=== PATIENT | female | born 1990 | race African-American/Black ===

== ENCOUNTER 2019-01-24 23:19 | Inpatient (IN) | payer OTHER ==
[~2019-01-24] VITALS: Ht 152.4 cm; Wt 51.5 kg
[~2019-01-24 23:19] MED LIST: NEXIUM40 MG PO
--- OUTSIDE RECORDS SUMMARY | 2019-01-24 23:38 | XMS REPORT ---
Author Author [facility] Address Unknown Phone Unavailable Care Team Providers Care Line Producer Name Role Phone Unavailable Unavailable Problems This patient has no known problems. Allergies, Adverse Reactions, Alerts This patient has no known allergies or adverse reactions. Medications This patient has no known medications. Results Test Description Test Time Test Comments Text Results Atomic Results Result Comments XR Chest 2 Views 2017-11-23 04:48:07 Patient: CRISTINE SPENCER Date/Time11/23/2017 04:21 CDTReason for ExamCoughReportCHEST RADIOGRAPHSLOCATION: R16.INDICATION: Cough.COMPARISON: None.TECHNIQUE: PA and lateral radiographs of the chest.FINDINGS:The lungs are clear. There is no pneumothorax or pleural effusion. The cardiomediastinal silhouette is normal.IMPRESSION:No acute cardiopulmonary disease. Final Dictated by: MD Armando Christopher ADictated DT/TM: 11/23/2017 4:46 amSigned by: MD Armando Christopher ASigned (Electronic Signature): 11/23/2017 4:48 am
--- OUTSIDE RECORDS SUMMARY | 2019-01-24 23:38 | XMS REPORT | Clinical Summary ---
Author Author [facility] Address Unknown Phone Unavailable Care Team Providers Care Global Supply [employer] Vice President Name Role Phone Asked, No Pcp PCP Unavailable Allergies No Known Allergies Medications No known medications Active Problems Problem Noted Date Moderate dehydration 12/19/2015 Acidosis 12/19/2015 Social History Date Tobacco Use Types Packs/Day Years Used Heavy Tobacco Smoker Drinks/Week oz/Week Comments Alcohol Use No Sex Assigned at Date Recorded Not on file Industry Job Start Date Occupation Not on file Not on file Not on file Travel End Travel History Travel Start No recent travel history available. Last Filed Vital Signs Not on file Plan of Treatment Health Maintenance Due Date Last Done Comments CERVICAL CANCER SCREENING 2011 INFLUENZA VACCINE 12/29/2018 Results Not on fileafter 01/23/2018 Advance Directives For more information, please contact: [phone] Date Inactivated Comments Code Status Date Activated 12/21/2015 4:34 PM Full Code 12/19/2015 10:16 AM Code Status decision reached by: Patient
[2019-01-24 23:40] VITALS: BP 124/84
--- NOTE | 2019-01-24 23:40 | NUR ---
PT ARRIVED BY EMS TO ROOM 108, PT IS AAOX3, RR EVEN AND NON-LABORED, ON ROOM AIR. PT REPORTS FEELING NAUSEATED AT THIS TIME. PT ALSO REPORTS SHE DOES NOT WANT ZOFRAN, IT JUST MAKES HER MORE NAUSEATED, THE ONLY MEDICATION THAT HAS HELPED IS THE PHENERGAN SHE RECEIVED AT THE ER. ORIENTED PT TO HOSPITAL ROOM, CALL LIGHT, PHONE, BED CONTROLS AND LIGHTS. LEFT PT LAYING SEMI FOWLERS IN BED, BED IN LOW LOCKED POSITION, SIDE RAILS UPX2, CALL LIGHT AND PHONE WITHIN REACH.
[2019-01-24] MEDS ORDERED: ACETAMINOPHEN 325 MG SUPP PR PRN (23:45)
[2019-01-24] MEDS ORDERED: DEXTROSE 5%/0.9% SOD CHL 1,000 ML IV SCH (23:45)
[2019-01-25] VITALS (8 sets, daily range): BP systolic 106–153; BP diastolic 76–97
--- NOTE | 2019-01-25 00:03 | NUR ---
PAGE PLACED FOR MD CONTRERAS CONCERNING PT REPORTS OF ZOFRAN BEING INEFFECTIVE AND REQUESTING PHENERGAN. ALSO WRITTEN ORDER IS FOR ABD CT WITH CONTRAST BUT PT HAS RECENTLY RECEIVED CONTRAST AT [facility]. WAITING FOR CALLBACK.
--- NOTE | 2019-01-25 00:17 | NUR ---
SPOKE WITH MD Oscar ARTHUR CONCERNING CONSULTATION. NEW ORDERS RECEIVED.
[2019-01-25] MEDS: LACTATED RINGER'S 1,000 ML IV SCH ×6 (01:00→19:10)
[2019-01-25] MEDS: PROMETHAZINE 12.5MG/ NACL 0.9% 12.5 MG/50 ML BAG IV PRN ×5 (01:00→22:42)
[2019-01-25] MEDS ORDERED: BIRTH CONTROL PO (01:33)
[2019-01-25 01:47] LABS: ALANINE AMINOTRANSFERASE 163 IU/L (0-55); ALBUMIN/GLOBULIN RATIO 1.4 (0.8-2.0); ALKALINE PHOSPHATASE 45 IU/L (40-150); AMYLASE 89 U/L (25-125); BLOOD UREA NITROGEN 13 mg/dL (7-26); BUN/CREATININE RATIO 17 (6-25); CALCIUM 9.4 mg/dL (8.4-10.2); CARBON DIOXIDE 23 mmol/L (22-29); CREATININE, SERUM 0.75 mg/dL (0.57-1.11); EST GLOMERULAR FILTRATION RATE > 60 ML/MIN (60-); GLUCOSE 79 mg/dL (74-118); LIPASE 6 U/L (8-78)
[2019-01-25 04:58] LABS: ANION GAP 14.8 mmol/L (8-16); CHLORIDE 104 mmol/L (98-107); POTASSIUM 3.8 mmol/L (3.5-5.1); SODIUM 138 mmol/L (136-145)
[2019-01-25 06:26] LABS: ALANINE AMINOTRANSFERASE 199 IU/L (0-55); ALBUMIN 3.7 g/dL (3.5-5.0); ALBUMIN/GLOBULIN RATIO 1.4 (0.8-2.0); ALKALINE PHOSPHATASE 43 IU/L (40-150); AMYLASE 79 U/L (25-125); ANION GAP 13.8 mmol/L (8-16); BLOOD UREA NITROGEN 13 mg/dL (7-26); BUN/CREATININE RATIO 17 (6-25); CALCIUM 9.1 mg/dL (8.4-10.2); CARBON DIOXIDE 25 mmol/L (22-29); CHLORIDE 104 mmol/L (98-107); CREATININE, SERUM 0.75 mg/dL (0.57-1.11); EST GLOMERULAR FILTRATION RATE > 60 ML/MIN (60-); GLUCOSE 75 mg/dL (74-118); LIPASE 7 U/L (8-78); POTASSIUM 3.8 mmol/L (3.5-5.1); SODIUM 139 mmol/L (136-145)
[2019-01-25] MEDS: MORPHINE SULFATE 2 MG/ML SYR 1ML IV PRN ×3 (07:35→22:42)
--- NOTE | 2019-01-25 09:16 | Diagnostic Imaging Report ---
EXAMINATION: Right upper quadrant ultrasound CLINICAL INDICATION: Elevated liver function test COMPARISON: None DISCUSSION: Transverse and longitudinal images of the right upper quadrant were obtained. The liver is normal in size measuring 12.6centimeters in length in the right midclavicular line and shows normal echogenicity. No focal masses are seen in the liver. There is no intrahepatic biliary dilatation. The common bile duct is normal in caliber and measures 0.3 cm. The main portal vein is normal in caliber and measures 0.9 cm with normal hepatopetal flow. The gallbladder is normal in appearance without stones, wall thickening or pericholecystic fluid. The sonographic Blue's sign is negative. The visualized portions of the pancreatic body are unremarkable. The right kidney measures 12 centimeters in length. There is normal renal cortical echogenicity and no hydronephrosis, mass or shadowing calculi. The visualized portions of the great vessels are normal. No free fluid is seen. IMPRESSION: Normal gallbladder ultrasound Signed by: Dr. Julius Ash M.D. on 01/25/2019 9:12 AM
[2019-01-25] MEDS: PANTOPRAZOLE 40 MG 10ML VIAL IV SCH (09:43)
[2019-01-25] MEDS ORDERED: MORPHINE SULFATE 2 MG/ML SYR 1ML IV STA (14:59)
--- NOTE | 2019-01-25 18:16 | Diagnostic Imaging Report ---
Hepatobiliary Scan with Gallbladder Ejection Fraction Clinical information: 28 F with pancreatitis and elevate LFT's. Technique: Following intravenous administration of 6.6 millicuries of Tc-99m mebrofenin, dynamic images of the abdomen in the anterior projection were obtained through 60 minutes. A static image was obtained at 70 minutes. Sincalide (CCK analog) 1.0 micrograms was administered intravenously over 30 minutes with additional imaging for determination of gallbladder ejection fraction. Discussion: Perfusion of the liver is normal. Extraction of tracer by the liver parenchyma is normal. Tracer appears within the biliary tract by 15 minutes. The gallbladder does not fill until 70 minutes but fills adequately. Tracer is seen in the small bowel by 45 minutes. The gallbladder ejection fraction with sincalide is 16% (normal greater than 40%). Impression: 1. Filling of the gallbladder excludes acute cystic duct obstruction/acute cholecystitis. 2. The decreased gallbladder ejection fraction of 16% supports the clinical diagnosis of chronic cholecystitis/gallbladder dyskinesia. Signed by: Dr. Juliana Esparza M.D. on 01/25/2019 6:13 PM
--- NOTE | 2019-01-25 19:10 | NUR ---
MD Kristin ARTHUR AWARE OF HIDDA SCAN RESULT MD ASKED TO [facility] FOR ORDERS ON POSSIBLY NEEDING SURGERY CONSULTED PAGED AWAITING FOR CALL BACK
--- NOTE | 2019-01-25 19:31 | NUR ---
BED SIDE SHIFT REPORT TAKEN FROM MORNING ANITHA HONG.PT IS LYEING IN THE BED.HIDA SCAN REPORT NOTIFIED TO MD PECK.ORDERED FOR CONSULTS WITH MD COLIN.CONSULTS CALLED.HE WILL COME AND SEE THE PT TOMORROW.ON NPO.
[2019-01-26] VITALS (8 sets, daily range): BP systolic 118–157; BP diastolic 72–98
[2019-01-26] MEDS: LACTATED RINGER'S 1,000 ML IV SCH ×6 (00:39→22:33)
[2019-01-26] MEDS: PROMETHAZINE 12.5MG/ NACL 0.9% 12.5 MG/50 ML BAG IV PRN ×3 (03:12→19:55)
[2019-01-26] MEDS: MORPHINE SULFATE 2 MG/ML SYR 1ML IV PRN ×3 (03:15→19:56)
[2019-01-26 05:49] LABS: BASOPHILS % 0.3 % (0.0-1.0); EOSINOPHILS % 0.1 % (0.0-6.0); HEMATOCRIT 31.4 % (34.2-44.1); LYMPHOCYTES # (AUTO) 2.7 (1.0-3.2); LYMPHOCYTES % 25.7 % (18.0-39.1); MEAN CORPUSCULAR HGB CONC 31.8 g/dL (31-35); MEAN CORPUSCULAR VOLUME 81.6 fL (81-99); MONOCYTES # (AUTO) 0.8 (0.2-0.8); MONOCYTES % 7.5 % (4.4-11.3); NEUTROPHILS # (AUTO) 6.9 (2.1-6.9); NEUTROPHILS % 65.9 % (38.7-80.0); PLATELET COUNT 212 x10e3/uL (140-360); RED BLOOD COUNT 3.85 x10e6/uL (3.6-5.1); RED CELL DISTRIBUTION WIDTH 17.4 % (11.7-14.4)
[2019-01-26 06:09] LABS: ALANINE AMINOTRANSFERASE 211 IU/L (0-55); ALBUMIN 3.2 g/dL (3.5-5.0); ALBUMIN/GLOBULIN RATIO 1.2 (0.8-2.0); ALKALINE PHOSPHATASE 39 IU/L (40-150); ANION GAP 11.8 mmol/L (8-16); BLOOD UREA NITROGEN 11 mg/dL (7-26); BUN/CREATININE RATIO 14 (6-25); CALCIUM 8.9 mg/dL (8.4-10.2); CARBON DIOXIDE 27 mmol/L (22-29); CHLORIDE 103 mmol/L (98-107); CREATININE, SERUM 0.76 mg/dL (0.57-1.11); EST GLOMERULAR FILTRATION RATE > 60 ML/MIN (60-); GLUCOSE 61 mg/dL (74-118); POTASSIUM 3.8 mmol/L (3.5-5.1); SODIUM 138 mmol/L (136-145)
--- NOTE | 2019-01-26 06:59 | NUR ---
Bed side shift report given to the oncoming rn.stable condition.
--- NOTE | 2019-01-26 07:00 | NUR ---
BEDSIDE SHIFT REPORT RECEIVED FROM NIGHT RN. PT DENIES NEEDS AT THIS TIME.
[2019-01-26] MEDS: PANTOPRAZOLE 40 MG 10ML VIAL IV SCH (09:04)
--- NOTE | 2019-01-26 10:49 | Progress Note ---
DATE: 01/26/2019 SUBJECTIVE: Ms. Lozano is a 28-year-old female with history of hiatal hernia, went to the emergency room complaining of upper quadrant pain, vomiting, chills. She was transferred to [facility] with a diagnosis of pancreatitis. When she came here, lipase was normal. The patient was seen by GI. PHYSICAL EXAMINATION: GENERAL: Today, she is awake and alert. VITAL SIGNS: Temperature is 98.2, blood pressure 148/73. HEART: Regular rate. LUNGS: Clear to auscultation. ABDOMEN: Soft. LABORATORY DATA: On the blood work, white count 10.41, hemoglobin is 10, hematocrit 31.4. Potassium 3.8, creatinine is 0.76. Bilirubin is normal. Alkaline phosphatase is normal. AST is 160, ALT is 211. Hepatitis profile is pending. HIDA scan shows that the ejection fraction of the gallbladder is 16% with probable diagnosis of chronic cholecystitis. The abdominal ultrasound showed normal gallbladder ultrasound. ASSESSMENT: 1. Abdominal pain, vomiting. 2. Chronic cholecystitis with decreased ejection fraction on the HIDA scan. 3. Elevated liver enzymes. Hepatitis profile is pending. PLAN: At present time is to make the patient n.p.o. Continue Protonix. Continue IV fluids. We are still waiting for hepatitis profile. The patient will go probably for EGD and a surgical consult was requested with Dr. Db Martin for probable cholecystectomy. All this was discussed with the patient. All questions were answered to satisfaction. MD ROSALES Durand/TEODORO /[id number]
--- NOTE | 2019-01-26 14:30 | NUR ---
PT OFF THE UNIT FOR PROCEDURE.
[2019-01-26] MEDS ORDERED: LIDOCAINE HCL 2% LOCAL INJ 5 ML SDV VIAL INJ ONE (14:57)
[2019-01-26] MEDS ORDERED: MIDAZOLAM HCL 2 MG/2 ML VIAL ONE (15:00)
--- NOTE | 2019-01-26 18:10 | NUR ---
PT BACK TO FLOOR FROM PACU. VITALS WNL. PT DENIES NEEDS AT THIS TIME.
--- NOTE | 2019-01-26 19:10 | NUR ---
Report taken from morning Raymond.Patient is lyeing in the bed.stable condition.
--- NOTE | 2019-01-26 23:12 | Operative Report ---
DATE OF PROCEDURE: 01/26/2019 SURGEON: Immanuel Hanson MD PROCEDURE: EGD with biopsies. INDICATIONS FOR EGD: Upper abdominal pain, nausea, and vomiting. MEDICATIONS: The patient was done under MAC, please see anesthesiologist's note. PROCEDURE IN DETAIL: With the patient in left lateral decubitus position, a flexible fiberoptic Olympus gastroscope was introduced into the esophagus under direct visualization without any difficulty. There was some patchy erythema noted in distal esophagus. An approximately 4 mm nodule was noted at the GE junction that was biopsied. The scope was then advanced with ease into the stomach traversing a small hiatal hernia. Mucosa overlying the antrum and the body revealed some patchy erythema and low-grade to moderate edema and biopsies were obtained and sent to stain for H pylori. The pylorus was intubated with ease and the scope was advanced all the way to the second portion of the duodenum. Biopsies were obtained from the proximal second portion to rule out sprue. Mucosa overlying the duodenal bulb grossly appeared to be within normal limits. The scope was then withdrawn back into the stomach and retroflexed. Mucosa overlying the fundus appeared to be within normal limits. The previously described hiatal hernia was also noted in the retroflexed position. The scope was then straightened out, it was subsequently withdrawn. The patient tolerated the procedure well. IMPRESSION: 1. Distal esophagitis. 2. Nodule GE junction biopsied. 3. Small hiatal hernia. 4. Gastritis, biopsied. Biopsies sent to stain for H pylori. 5. Rule out sprue. PLAN: Follow up histology. Continue PPI therapy. Initiate GI soft diet. Immanuel Hanson MD [facility] /[id number] cc: Suha Oleary MD
[2019-01-27] VITALS (8 sets, daily range): BP systolic 121–147; BP diastolic 78–97
[2019-01-27] MEDS: LACTATED RINGER'S 1,000 ML IV SCH ×4 (00:30→12:30)
[2019-01-27] MEDS: PROMETHAZINE 12.5MG/ NACL 0.9% 12.5 MG/50 ML BAG IV PRN ×2 (00:56→19:10)
[2019-01-27] MEDS: MORPHINE SULFATE 2 MG/ML SYR 1ML IV PRN (00:57)
--- NOTE | 2019-01-27 01:22 | NUR ---
pain medication given.stable condition.
--- NOTE | 2019-01-27 07:00 | NUR ---
BEDSIDE SHIFT REPORT RECEIVED FROM NIGHT RN. PT DENIES NEEDS AT THIS TIME.
--- NOTE | 2019-01-27 07:06 | NUR ---
Bed side shift report given to the oncoming Rn.stable condition.
[2019-01-27] MEDS: PANTOPRAZOLE 40 MG 10ML VIAL IV SCH (09:24)
--- NOTE | 2019-01-27 10:21 | Progress Note ---
DATE: SUBJECTIVE: Ms. Lozano is a 29-year-old female with history of hiatal hernia in the past, came to the emergency room complaining of right upper quadrant pain, vomiting, and she had EGD done yesterday that shows hiatal hernia, esophagitis, and gastritis. The patient right now is on a soft diet. Lipase has been normal. There is some concern about chronic cholecystitis. So, surgical consult was requested. PHYSICAL EXAMINATION: GENERAL: Today, she is awake and alert. VITAL SIGNS: Temperature is 98.2, blood pressure 121/78. HEART: Regular rate. LUNGS: Clear to auscultation. ABDOMEN: Soft. LABORATORY DATA: White count 10.41, hemoglobin is 10, hematocrit 31.4. Potassium 3.8, creatinine is 0.76, glucose is 61. Hepatitis profile came back negative. Liver enzymes still elevated, but slowly going down. Lipase and amylase were normal. HIDA scan showed an ejection fraction of 16%. ASSESSMENT: 1. Abdominal pain and vomiting. 2. Concern for chronic cholecystitis with decreased ejection fraction. 3. Elevated liver enzymes with hepatitis profile negative. 4. Gastritis, hiatal hernia, and esophagitis. PLAN: Plan at present time is to continue Protonix. She is on IV fluids. Hepatitis profile negative. Awaiting for Dr. Martin to see if the patient needs cholecystectomy. All this was discussed in extension with the patient. All questions were answered to satisfaction. MD ROSALES Durand/TEODORO /[id number]
--- NOTE | 2019-01-27 13:00 | NUR ---
PT OFF THE FLOOR TO OR
[2019-01-27] MEDS ORDERED: BUPIVACAINE 0.25%/EPI 30ML SDV INJ ONE (14:04)
[2019-01-27] MEDS ORDERED: ACETAMINOPHEN 1000 MG/100 ML IV PRN (16:15)
[2019-01-27] MEDS ORDERED: ACETAMINOPHEN 1000 MG/100 ML 100 ML IV PRN (16:15)
[2019-01-27] MEDS ORDERED: ONDANSETRON HCL INJ 2MG/ML 2ML 2 MG/ML VIAL ONE ×2 (16:23→17:25)
[2019-01-27] MEDS ORDERED: METOCLOPRAMIDE HCL 10 MG/2ML VIAL ONE (16:23)
[2019-01-27] MEDS ORDERED: MEPERIDINE HCL INJ 25 MG/ML VIAL ONE (16:27)
[2019-01-27] MEDS ORDERED: PROMETHAZINE HCL (IM) 25 MG/ML VIAL ONE (16:32)
--- NOTE | 2019-01-27 17:08 | NUR ---
Patient returned to unit from procedure. Resting in bed. No signs of distress. Will continue to monitor.
[2019-01-27] MEDS ORDERED: SEVOFLURANE INHAL SOLN 250 ML PEN BTL ONE (17:25)
[2019-01-27] MEDS ORDERED: DEXAMETHASONE SOD PHOS INJ 4 MG/ML VIAL ONE (17:25)
[2019-01-27] MEDS ORDERED: GLYCOPYRROLATE INJ 1MG/ 5 ML SYR ONE (17:25)
[2019-01-27] MEDS ORDERED: LIDOCAINE HCL 2% LOCAL INJ 5 ML SDV VIAL INJ ONE (17:25)
[2019-01-27] MEDS ORDERED: NEOSTIGMINE 5 MG/5ML SYR ONE (17:25)
[2019-01-27] MEDS ORDERED: ROCURONIUM BROMIDE 10 MG/ML 5ML VIAL ONE (17:25)
[2019-01-27] MEDS ORDERED: KETOROLAC TROMETHAMINE 30 MG/ML VIAL ONE (17:25)
[2019-01-27] MEDS ORDERED: PROPOFOL IV EMULSION 10 MG/ML 20 ML VIAL ONE (17:25)
[2019-01-27] MEDS ORDERED: MIDAZOLAM HCL 2 MG/2 ML VIAL ONE (17:52)
[2019-01-27] MEDS ORDERED: FENTANYL CITRATE/PF 100MCG/2 ML INJ ONE (17:52)
[2019-01-27] MEDS: DEXTROSE 5%/LACTATED RINGERS 1,000 ML IV SCH (18:03)
[2019-01-27] MEDS: HYDROMORPHONE 1MG/1ML INJ IV PRN ×2 (18:18→22:45)
--- NOTE | 2019-01-27 19:07 | NUR ---
WALKING ROUNDS PERFORMED, RECEIVED PT LAYING SEMI FOWLERS IN BED, AAOX3, RR EVEN AND NON-LABORED, ON ROOM AIR. NO S/SX OF DISTRESS NOTED. X4 TROCAR SITES TO ANTERIOR ABD. LEFT PT LAYING SEMI FOWLERS IN BED, BED IN LOW LOCKED POSITION, SIDE RAILS UPX2, CALL LIGHT AND PHONE WITHIN REACH.
--- NOTE | 2019-01-27 19:15 | NUR ---
Bedside report given to night nurse. Family at bedside.
[2019-01-27] MEDS: HYDROCODONE/APAP 7.5MG-325MG 1 EA TAB PO PRN (19:50)
--- NOTE | 2019-01-27 19:50 | Operative Report ---
DATE OF PROCEDURE: 01/27/2019 SURGEON: Db Martin MD PREOPERATIVE DIAGNOSES: Cholecystitis and biliary dyskinesia. POSTOPERATIVE DIAGNOSES: Cholecystitis and biliary dyskinesia. OPERATION PERFORMED: Laparoscopic cholecystectomy. ANESTHESIA: General. COMPLICATIONS: None. ESTIMATED BLOOD LOSS: Minimal. DESCRIPTION OF PROCEDURE: With the patient lying in bed in supine position under good general endotracheal anesthesia, the abdomen was prepped with Betadine solution and draped in the usual manner. A Veress needle was introduced into the umbilicus and pneumoperitoneum was established without any difficulty. An 11 mm trocar was placed into the umbilicus and a 10 mm video laparoscope was placed into the intraabdominal cavity. Under direct vision, three 5 mm trocars were placed in the right subcostal region. Video laparoscopy at this point revealed a distended gallbladder that was totally covered up with thick fibrous adhesions with the transverse colon and the duodenum being stuck to the lower part of the gallbladder. Obviously, she must have been having multiple inflammatory episodes for a long time to develop such a fibrous adhesions to the gallbladder. The rest of the abdominal exploration was otherwise negative. All the adhesions of the gallbladder were then slowly and carefully taken down. The peritoneum overlying the neck of the gallbladder was then opened and the cystic duct was identified. The cystic duct was followed to its junction with the common duct. The cystic duct was then circumferentially dissected away from the common duct, doubly clipped and divided. The cystic artery was similarly doubly clipped and divided. The gallbladder was then slowly and carefully taken off the liver bed using the cautery scissors. There was again a lot of fibrosis on the liver bed, but nonetheless the gallbladder was totally removed and hemostasis was ascertained. The gallbladder was grasped through the umbilical port and removed without any difficulty. Video laparoscopy was then again carried out. The liver bed was found to be perfectly dry. All of the excess fluid was aspirated. The pneumoperitoneum was evacuated and the trocars were removed under direct vision. The midline fascia at the umbilicus was then closed with a [id number] of 0 Vicryl. All layers were infiltrated on the way out with solution of 0.25% Marcaine. Subcutaneous tissue was approximated with 3-0 Vicryl and the skin was closed with subcuticular 5-0 Vicryl. Benzoin, Steri-Strips, and Band-Aids were applied. The sponge, lap, and needle counts were correct. The patient tolerated the procedure well and returned to the recovery room in stable condition. MD BLAKE Jay/TEODORO /[id number]
[2019-01-28] VITALS: BP 101/60
[2019-01-28] MEDS: DEXTROSE 5%/LACTATED RINGERS 1,000 ML IV SCH ×2 (02:07→06:05)
[2019-01-28] MEDS: HYDROMORPHONE 1MG/1ML INJ IV PRN (03:34)
[2019-01-28] MEDS: PROMETHAZINE 12.5MG/ NACL 0.9% 12.5 MG/50 ML BAG IV PRN ×2 (03:34→12:40)
[2019-01-28 03:55] VITALS: BP 121/74
[2019-01-28 06:43] LABS: BASOPHILS % 0.1 % (0.0-1.0); HEMATOCRIT 30.7 % (34.2-44.1); LYMPHOCYTES # (AUTO) 1.4 (1.0-3.2); LYMPHOCYTES % 13.2 % (18.0-39.1); MEAN CORPUSCULAR HEMOGLOBIN 26.2 pg (28-32); MEAN CORPUSCULAR HGB CONC 32.6 g/dL (31-35); MEAN CORPUSCULAR VOLUME 80.4 fL (81-99); MONOCYTES # (AUTO) 0.9 (0.2-0.8); MONOCYTES % 8.8 % (4.4-11.3); NEUTROPHILS # (AUTO) 8.1 (2.1-6.9); NEUTROPHILS % 77.5 % (38.7-80.0); PLATELET COUNT 204 x10e3/uL (140-360); RED BLOOD COUNT 3.82 x10e6/uL (3.6-5.1); RED CELL DISTRIBUTION WIDTH 17.2 % (11.7-14.4)
--- NOTE | 2019-01-28 07:00 | NUR ---
bedside shift report received pt in stable condition, denies pain at htis time, 4 trochar sites to abdomen c/d/i, ivf infusing to r wrist 20g no ss of infiltration noted, no other co vocied call light in reach will continue to monitor
[2019-01-28 07:03] LABS: ALANINE AMINOTRANSFERASE 128 IU/L (0-55); ALBUMIN/GLOBULIN RATIO 1.3 (0.8-2.0); ALKALINE PHOSPHATASE 36 IU/L (40-150); ANION GAP 11.6 mmol/L (8-16); BLOOD UREA NITROGEN < 5 mg/dL (7-26); CALCIUM 8.7 mg/dL (8.4-10.2); CARBON DIOXIDE 28 mmol/L (22-29); CHLORIDE 102 mmol/L (98-107); CREATININE, SERUM 0.69 mg/dL (0.57-1.11); EST GLOMERULAR FILTRATION RATE > 60 ML/MIN (60-); GLUCOSE 143 mg/dL (74-118); POTASSIUM 3.6 mmol/L (3.5-5.1); SODIUM 138 mmol/L (136-145)
[2019-01-28 07:04] LABS: BUN/CREATININE RATIO 7 (6-25)
[2019-01-28 07:44] VITALS: BP 123/76
[2019-01-28 08:54] VITALS: BP 123/76
[2019-01-28] MEDS: PANTOPRAZOLE 40 MG 10ML VIAL IV SCH (09:11)
[2019-01-28 12:00] VITALS: BP 101/63
[2019-01-28] MEDS: HYDROCODONE/APAP 7.5MG-325MG 1 EA TAB PO PRN (12:40)
--- NOTE | 2019-01-28 14:57 | Discharge Summary ---
ADMITTING DIAGNOSES: 1. Acute gastritis. 2. Elevated hepatic transaminases. DISCHARGE DIAGNOSES: 1. Biliary dyskinesia. 2. Status post laparoscopic cholecystectomy. 3. Status post esophagogastroduodenoscopy. 4. Endoscopically proven small hiatal hernia. 5. Elevated hepatic transaminases, resolving. HOSPITAL COURSE: This is a 29-year-old woman, who was initially admitted to [facility] with diagnosis of upper abdominal pain, likely secondary to gastritis. During this hospitalization, the patient underwent a gallbladder ultrasound that was normal. However, the patient underwent HIDA scan during this hospital stay that revealed a decreased gallbladder ejection fraction of 16% supporting the clinical diagnosis of chronic cholecystitis/gallbladder dyskinesia. The patient had a hepatitis panel drawn during this hospitalization that was negative because she was found to have elevated hepatic transaminases. On admission, the patient's AST and ALT were 217 and 163 respectively. On day of discharge, it was 62 and 128 respectively. During this hospitalization, the patient underwent EGD, which revealed small hiatal hernia as well as distal esophagitis and gastritis. The gastric mucosa was biopsied for Helicobacter pylori or organisms. During this hospitalization, the patient was seen by general surgeon, namely Dr. Db Martin who performed successful laparoscopic cholecystectomy. On discharge, she was tolerating full liquid diet. DISCHARGE MEDICATIONS: 1. Tylenol No. 3 one pill every 6 hours p.r.n. pain, 20 prescribed, no refills. 2. Oral contraceptive pill. FOLLOWUP INSTRUCTIONS: The patient was instructed to follow up with Dr. Martin within 1 week. The patient was counseled on avoiding fatty fried foods for the next few weeks since this can precipitate diarrhea after cholecystectomy. MD DANIELLE VieraO/IVYL /[id number] cc: Db Martin MD
[2019-01-28] MEDS ORDERED: TYLENOL WITH C1 EACH PO (15:02)
== END 2019-01-28 15:39 | disposition home or self-care (01) | DRG 419 ==
LOC: MED/SURG 23:35
PROVIDERS: ADMIT Internal Medicine; ATTEND Internal Medicine
PROC: 0DB78ZX Excision of Stomach, Pylorus, Via Natural or Artificial Opening Endoscopic, Diagnostic (ICD-10-PCS; 2019-01-26)
PROC: 0FT44ZZ Resection of Gallbladder, Percutaneous Endoscopic Approach (ICD-10-PCS; principal; 2019-01-27 14:00)
DX: K81.9 Cholecystitis, unspecified (principal); K82.8 Other specified diseases of gallbladder; K29.70 Gastritis, unspecified, without bleeding; K44.9 Diaphragmatic hernia without obstruction or gangrene; K20.9 Esophagitis, unspecified; K22.8 Other specified diseases of esophagus
CPT/HCPCS: 36415; 43239; 76705; 78227; 80053; 82150; 83690; 84702; 85025; 88304; 88305; 88312; 96360; A9537; C1766; J1100; J1170; J1885; J2001; J2175; J2250; J2270; J2405; J2550; J2765; J3010; J7121

== ENCOUNTER 2019-10-29 14:24 | Emergency (ER) | payer OTHER ==
[~2019-10-29] VITALS: Ht 152.4 cm; Wt 51.3 kg
[~2019-10-29 14:24] MED LIST changes: +BIRTH CONTROL PO; +TYLENOL WITH C1 EACH PO
--- OUTSIDE RECORDS SUMMARY | 2019-10-29 14:26 | XMS REPORT ---
Author Author [facility] t Organization [facility] Address [address] [place] [address] Phone Unavailable Care Team Providers Care Communications Representative Name Role Phone EMMA, (NON STAFF) SANDI PCP Unavailable BOCCARDO, VELMA Attphys Unavailable BOCCARDO, VELMA Admphys Unavailable Payers Payer Name Policy Type Policy Number Effective Date Expiration Date Skyler Swan Pos [id number] 2018 00:00:00 [facility] Problems Condition Name Condition Details Condition Category Status Onset Date Resolution Date Last Treatment Date Treating Clinician Comments Source Moderate dehydration Moderate dehydration Disease Active 00:00:00 [place] [facility] Acidosis Acidosis Disease Active 2015-12-19 00:00:00 [place] [facility] Cocaine abuse Cocaine abuse Disease Active 2012-08-21 00:00:00 [facility] Cannabis-related disorder Cannabis-related disorder Disease Ac tive 2012-08-21 00:00:00 [facility] Dehydration Dehydration Disease Active 2012-08-20 00:00:00 [facility] Intractable nausea and vomiting Intractable nausea and vomiting Dis ease Active 2012-08-20 00:00:00 [facility] UTI (urinary tract infection) UTI (urinary tract infection) Disease Active 2012-08-20 00:00:00 [facility] Abdominal pain Abdominal pain Problem Active [facility] Allergies, Adverse Reactions, Alerts Allergy Name Allergy Type Status Severity Reaction(s) Onset Date Inacti ve Date Treating Clinician Comments Source No Known Allergies DA Active U 2013-11-18 00:00:00 [facility] Social History Social Habit Start Date Stop Date Quantity Comments Source Sex Assigned At [facility] Alcohol intake 2015-12-18 00:00:00 2015-12-18 00:00:00 [facility] Smoking Status Start Date Stop Date Source Heavy tobacco smoker 2015-12-19 00:00:00 [facility] Never smoker [facility] Medications Ordered Medication Name Filled Medication Name Start Date Stop Da te Current Medication? Ordering Clinician Indication Dosage Frequency Signature (SIG) Comments Components Source sucralfate (CARAFATE) 1 gram tablet 2014-09-07 00:00:00 Yes GERD (gastroesophageal reflux disease) 1g Q.5D Take 1 tablet by mouth [address] [facility] metoclopramide (REGLAN) 10 mg tablet 2013-11-17 00:00:00 Yes Nausea and vomiting 10mg Take 1 tablet by mouth 4 times daily as needed for Nausea. [facility] famotidine (PEPCID) 20 mg tablet 2013-11-17 00:00:00 Yes Nausea and vomiting 20mg Q.5D Take 1 tablet by mouth [address] [facility] omeprazole (PRILOSEC) 20 mg delayed release capsule 11-15 00:00:00 Yes Abdominal pain 20mg QD Take 1 capsule by mouth daily. [facility] ondansetron (ZOFRAN) 4 mg tablet 2012-11-28 00:00:00 Yes N&V (nausea and vomiting) 4mg Take 1 tablet by mouth every [address] [facility] pyridoxine 25 mg tablet 2012-11-28 00:00:00 Yes N&V (nausea and vomiting) 25mg QD Take 1 tablet by mouth daily. [facility] Doxylamine Succinate, Sleep, 25 mg Tab 2012-11-28 00:00:00 Yes N&V (nausea and vomiting) 12.5mg Take 12.5 mg by mouth every [address] [facility] Acetaminophen With Codeine (Tylenol With Codeine #3 Ta blet) 1 Each Tablet Acetaminophen With Codeine (Tylenol With Codeine #3 Tablet) 1 Each Tablet Yes 300 Every 6 Hours as needed for Pain [facility] Control Control Yes [address] [facility] Esomeprazole Magnesium (Nexium) 40 Mg Capsule., 40 M g Oral Esomeprazole Magnesium (Nexium) 40 Mg Capsule., 40 Mg Oral 2019-01-25 00:00:00 No 40 Daily [facility] Procedures Procedure Date / Time Performed Performing Clinician Sourbriseyda e Laparoscopic cholecystectomy 2019 00:00:00 DANIEL CHAUDHARY [facility] EGD with biopsy 2019-01-26 00:00:00 MICHAEL ARTHUR [facility] US Gallbladder 2019[facility]01[facility]25 [facility] Plan of Care Planned Activity Planned Date Details Comments Source Future Scheduled Test 2019-12-30 00:00:00 INFLUENZA VACCINE [code = INFLUENZA VACCINE] Aaron Chapman Future Scheduled Test 2011 00:00:00 Screening for kathi gnant neoplasm of cervix (procedure) [code = 103364623] Aaron Tovar Future Scheduled Test 2011 00:00:00 Cervical Cancer Sc rn (3 Yrs) [code = Cervical Cancer Scrn ([address])] [facility] Encounters Start Date/Time End Date/Time Encounter Type Admission Type Attendi [facility] Facility Care Department Encounter ID Source 2019-01-24 23:35:00 2019-01-28 15:39:00 Discharged Inpatient 3 VELMA CONTRERAS [facility] [id number] [facility] Results Test Description Test Time Test Comments Results Result Comments Source BASIC METABOLIC PANEL 2019-06-25 05:48:00 Test Item SODIUM (test code = NA) 142 mmol/L 136-145 N POTASSIUM (test code = K) 3.3 mmol/L 3.5-5.1 L CHLORIDE (test code = CL) 109.0 mmol/L 98-107 H CARBON DIOXIDE (test code = CO2) 25.0 mmol/L 21-32 N ANION GAP (test code = GAP) 11.3 10-20 N GLUCOSE (test code = GLU) 55 mg/dL 74-106 L BLOOD UREA NITROGEN (test code = BUN) 14 mg/dL 7-18 N GLOMERULAR FILTRATION RATE (test code = GFR) > 60 mL/min >=60 Estimated GFR by using Modified MDRD formula.Chronic kidney disease is defined as either kidney damageor GFR <60 mL/min/1.73 m2 for >3 months. CREATININE (test code = CREAT) 0.60 mg/dL 0.55-1.02 N Note change in reference range due to change in reagent. BUN/CREATININE RATIO (test code = BUN/CREA) 23.3 10-20 H CALCIUM (test code = CA) 8.2 mg/dL 8.5-10.1 L BASIC METABOLIC [id number] 05:43:00* Test Item Value Reference Range Interpretation Comments SODIUM (test code = NA) 142 mmol/L 136-145 N POTASSIUM (test code = K) 3.3 mmol/L 3.5-5.1 L CHLORIDE (test code = CL) 109.0 mmol/L 98-107 H CARBON DIOXIDE (test code = CO2) mmol/L 21-32 ANION GAP (test code = GAP) 10-20 GLUCOSE (test code = GLU) mg/dL 74-106 BLOOD UREA NITROGEN (test code = BUN) mg/dL 7-18 GLOMERULAR FILTRATION RATE (test code = GFR) mL/min >=60 CREATININE (test code = CREAT) mg/dL 0.55-1.02 BUN/CREATININE RATIO (test code = BUN/CREA) 10-20 CALCIUM (test code = CA) mg/dL 8.5-10.1 CBC W/AUTO [id number] 05:18:00* Test Item Value Reference Range Interpretation Comments WHITE BLOOD CELL (test code = WBC) 9.5 K/mm3 4.5-12.5 N RED BLOOD CELL (test code = RBC) 3.79 mill/mm3 3.7-5.2 N HEMOGLOBIN (test code = HGB) 9.8 gram/dL 11.5-15.5 L HEMATOCRIT (test code = HCT) 30.7 % 36.0-46.0 L MEAN CELL VOLUME (test code = MCV) 81.0 fL 80-98 N MEAN CELL HGB (test code = MCH) 25.9 picogram 27.0-33.0 L MEAN CELL HGB CONCETRATION (test code = MCHC) 31.9 gram/dL 33.0-36. 0 L RED CELL DISTRIBUTION WIDTH (test code = RDW) 18.6 % 11.6-16. 2 H RED CELL DISTRIBUTION WIDTH SD (test code = RDW-SD) 54.9 fL 37 .0-51.0 H PLATELET COUNT (test code = PLT) 223 K/mm3 150-450 N MEAN PLATELET VOLUME (test code = MPV) 9.8 fL 6.7-11.0 N NEUTROPHIL % (test code = NT%) 54.5 % 39.0-69.0 N IMMATURE GRANULOCYTE % (test code = IG%) 0.3 % 0.0-5.0 N LYMPHOCYTE % (test code = LY%) 39.1 % 25.0-55.0 N MONOCYTE % (test code = MO%) 5.6 % 0.0-10.0 N EOSINOPHIL % (test code = EO%) 0.2 % 0.0-5.0 N BASOPHIL % (test code = BA%) 0.3 % 0.0-1.0 N NUCLEATED RBC % (test code = NRBC%) 0.0 % 0-0 N NEUTROPHIL # (test code = NT#) 5.16 K/mm3 1.8-7.7 N IMMATURE GRANULOCYTE # (test code = IG#) 0.03 x10 3/uL 0-0.03 N LYMPHOCYTE # (test code = LY#) 3.70 K/mm3 1.0-5.0 N MONOCYTE # (test code = MO#) 0.53 K/mm3 0-0.8 N EOSINOPHIL # (test code = EO#) 0.02 K/mm3 0.0-0.5 N BASOPHIL # (test code = BA#) 0.03 K/mm3 0.0-0.2 N NUCLEATED RBC # (test code = NRBC#) 0.00 K/mm3 0.0-0.1 N MANUAL DIFF REQUIRED (test code = MDIFF) NO COMPREHENSIVE METABOLIC [id number] 11:40:00* Test Item Value Reference Range Interpretation Comments SODIUM (test code = NA) 143 mmol/L 136-145 N POTASSIUM (test code = K) 3.5 mmol/L 3.5-5.1 N CHLORIDE (test code = CL) 110.0 mmol/L 98-107 H CARBON DIOXIDE (test code = CO2) 25.0 mmol/L 21-32 N ANION GAP (test code = GAP) 11.5 10-20 N GLUCOSE (test code = GLU) 72 mg/dL 74-106 L BLOOD UREA NITROGEN (test code = BUN) 17 mg/dL 7-18 N GLOMERULAR FILTRATION RATE (test code = GFR) > 60 mL/min >=60 Estimated GFR by using Modified MDRD formula.Chronic kidney disease is defined as either kidney damageor GFR <60 mL/min/1.73 m2 for >3 months. CREATININE (test code = CREAT) 0.60 mg/dL 0.55-1.02 N Note change in reference range due to change in reagent. BUN/CREATININE RATIO (test code = BUN/CREA) 28.3 10-20 H TOTAL PROTEIN (test code = PROT) 6.1 gram/dL 6.4-8.2 L ALBUMIN (test code = ALB) 3.5 g/dL 3.4-5.0 N GLOBULIN (test code = GLOB) 2.6 gram/dL 2.7-4.2 L ALBUMIN/GLOBULIN RATIO (test code = A/G) 1.4 0.75-1.50 N CALCIUM (test code = CA) 8.7 mg/dL 8.5-10.1 N BILIRUBIN TOTAL (test code = BILT) 0.30 mg/dL 0.0-1.0 N SGOT/AST (test code = AST) 33 IUnit/L 15-37 N SGPT/ALT (test code = ALT) 34 IUnit/L 12-78 N ALKALINE PHOSPHATASE TOTAL (test code = ALKP) 48 IUnit/L 45-117 N Note change in reference range due to change in reagent. COMPREHENSIVE METABOLIC [id number] 11:18:00* Test Item Value Reference Range Interpretation Comments SODIUM (test code = NA) 143 mmol/L 136-145 N POTASSIUM (test code = K) 3.5 mmol/L 3.5-5.1 N CHLORIDE (test code = CL) 110.0 mmol/L 98-107 H CARBON DIOXIDE (test code = CO2) mmol/L 21-32 ANION GAP (test code = GAP) 10-20 GLUCOSE (test code = GLU) mg/dL 74-106 BLOOD UREA NITROGEN (test code = BUN) mg/dL 7-18 GLOMERULAR FILTRATION RATE (test code = GFR) mL/min >=60 CREATININE (test code = CREAT) mg/dL 0.55-1.02 BUN/CREATININE RATIO (test code = BUN/CREA) 10-20 TOTAL PROTEIN (test code = PROT) gram/dL 6.4-8.2 ALBUMIN (test code = ALB) g/dL 3.4-5.0 GLOBULIN (test code = GLOB) gram/dL 2.7-4.2 ALBUMIN/GLOBULIN RATIO (test code = A/G) 0.75-1.50 CALCIUM (test code = CA) mg/dL 8.5-10.1 BILIRUBIN TOTAL (test code = BILT) mg/dL 0.0-1.0 SGOT/AST (test code = AST) IUnit/L 15-37 SGPT/ALT (test code = ALT) IUnit/L 12-78 ALKALINE PHOSPHATASE TOTAL (test code = ALKP) IUnit/L 45-117 CBC W/AUTO [id number] 11:02:00* Test Item Value Reference Range Interpretation Comments WHITE BLOOD CELL (test code = WBC) 8.9 K/mm3 4.5-12.5 N RED BLOOD CELL (test code = RBC) 3.91 mill/mm3 3.7-5.2 N HEMOGLOBIN (test code = HGB) 10.1 gram/dL 11.5-15.5 L HEMATOCRIT (test code = HCT) 31.8 % 36.0-46.0 L MEAN CELL VOLUME (test code = MCV) 81.3 fL 80-98 N MEAN CELL HGB (test code = MCH) 25.8 picogram 27.0-33.0 L MEAN CELL HGB CONCETRATION (test code = MCHC) 31.8 gram/dL 33.0-36. 0 L RED CELL DISTRIBUTION WIDTH (test code = RDW) 19.0 % 11.6-16. 2 H RED CELL DISTRIBUTION WIDTH SD (test code = RDW-SD) 55.9 fL 37 .0-51.0 H PLATELET COUNT (test code = PLT) 239 K/mm3 150-450 N MEAN PLATELET VOLUME (test code = MPV) 9.8 fL 6.7-11.0 N NEUTROPHIL % (test code = NT%) 70.0 % 39.0-69.0 H IMMATURE GRANULOCYTE % (test code = IG%) 0.3 % 0.0-5.0 N LYMPHOCYTE % (test code = LY%) 23.9 % 25.0-55.0 L MONOCYTE % (test code = MO%) 5.6 % 0.0-10.0 N EOSINOPHIL % (test code = EO%) 0.0 % 0.0-5.0 N BASOPHIL % (test code = BA%) 0.2 % 0.0-1.0 N NUCLEATED RBC % (test code = NRBC%) 0.0 % 0-0 N NEUTROPHIL # (test code = NT#) 6.22 K/mm3 1.8-7.7 N IMMATURE GRANULOCYTE # (test code = IG#) 0.03 x10 3/uL 0-0.03 N LYMPHOCYTE # (test code = LY#) 2.13 K/mm3 1.0-5.0 N MONOCYTE # (test code = MO#) 0.50 K/mm3 0-0.8 N EOSINOPHIL # (test code = EO#) 0.00 K/mm3 0.0-0.5 N BASOPHIL # (test code = BA#) 0.02 K/mm3 0.0-0.2 N NUCLEATED RBC # (test code = NRBC#) 0.00 K/mm3 0.0-0.1 N DRUGS OF ABUSE SCREEN [id number] 02:18:00* Test Item Value Reference Range Interpretation Comments UA PH DIPSTICK (test code = MARILU) 6.5 5.0-8.0 URN COCAINE (test code = COCAURN) NEGATIVE <300 ng/mL URN CANNABINOIDS (test code = CANNABURN) POSITIVE <50 ng/mL A This test provides only a preliminary test result. A morespecific alternate chemical method must be used in order toobtain a confirmed analytical result. Gas chromatography/mass spectrometry (GC/MS) is thepreferred confirmatory method. Other chemical confirmationmethods are available. Clinical consideration and professional judgment should be applied to any drug of abusetest result, particularly when preliminary positive resultsare used.Unconfirmed screening results must not be used fornon-medical purposes (e.g., employment testing, legaltesting). URN AMPHETAMINE (test code = AMPHETURN) NEGATIVE <1000 ng/mL URN BARBITURATE (test code = BARBITURN) NEGATIVE <200 ng/mL URN BENZODIAZEPINE (test code = BENZOURN) NEGATIVE <200 ng/mL URN OPIATES (test code = OPIATURN) NEGATIVE <300 ng/mL URN PHENCYCLIDINE (PCP) (test code = PHENCURN) NEGATIVE <25 ng/ mL URN METHADONE (test code = METHAURN) NEGATIVE <300 ng/mL DRUGS OF ABUSE SCREEN [id number] 01:54:00* Test Item Value Reference Range Interpretation Comments UA PH DIPSTICK (test code = MARILU) 6.5 5.0-8.0 URN COCAINE (test code = COCAURN) <300 ng/mL URN CANNABINOIDS (test code = CANNABURN) <50 ng/mL URN AMPHETAMINE (test code = AMPHETURN) <1000 ng/mL URN BARBITURATE (test code = BARBITURN) <200 ng/mL URN BENZODIAZEPINE (test code = BENZOURN) <200 ng/mL URN OPIATES (test code = OPIATURN) <300 ng/mL URN PHENCYCLIDINE (PCP) (test code = PHENCURN) <25 ng/ mL URN METHADONE (test code = METHAURN) <300 ng/mL COMPREHENSIVE METABOLIC [id number] 15:05:00* Test Item Value Reference Range Interpretation Comments SODIUM (test code = NA) 141 mmol/L 136-145 N POTASSIUM (test code = K) 3.3 mmol/L 3.5-5.1 L CHLORIDE (test code = CL) 108.0 mmol/L 98-107 H CARBON DIOXIDE (test code = CO2) 24.0 mmol/L 21-32 N ANION GAP (test code = GAP) 12.3 10-20 N GLUCOSE (test code = GLU) 139 mg/dL 74-106 H BLOOD UREA NITROGEN (test code = BUN) 11 mg/dL 7-18 N GLOMERULAR FILTRATION RATE (test code = GFR) > 60 mL/min >=60 Estimated GFR by using Modified MDRD formula.Chronic kidney disease is defined as either kidney damageor GFR <60 mL/min/1.73 m2 for >3 months. CREATININE (test code = CREAT) 0.70 mg/dL 0.55-1.02 N Note change in reference range due to change in reagent. BUN/CREATININE RATIO (test code = BUN/CREA) 15.7 10-20 N TOTAL PROTEIN (test code = PROT) 7.3 gram/dL 6.4-8.2 N ALBUMIN (test code = ALB) 3.8 g/dL 3.4-5.0 N GLOBULIN (test code = GLOB) 3.5 gram/dL 2.7-4.2 N ALBUMIN/GLOBULIN RATIO (test code = A/G) 1.1 0.75-1.50 N CALCIUM (test code = CA) 8.7 mg/dL 8.5-10.1 N BILIRUBIN TOTAL (test code = BILT) 0.40 mg/dL 0.0-1.0 N SGOT/AST (test code = AST) 33 IUnit/L 15-37 N SGPT/ALT (test code = ALT) 33 IUnit/L 12-78 N ALKALINE PHOSPHATASE TOTAL (test code = ALKP) 54 IUnit/L 45-117 N Note change in reference range due to change in reagent. LIPID PROFILE (CORONARY RISK)2019-06-23 15:05:00* Test Item Value Reference Range Interpretation Comments TRIGLYCERIDES (test code = TRIG) 81 mg/dL 20-150 N CHOLESTEROL (test code = CHOL) 190 mg/dL 0-200 N CHOLESTEROL/HDL RATIO (test code = CHOLHDL) 3.0 RATIO 0-4.9 N RISK ASSOCIATED WITH CHOL/HDL RATIOS: Risk Male Female1/2 AVERAGE 3.43 3.27AVERAGE 4.97 4.442X AVERAGE 9.55 7.053X AVERAGE 23.39 11.04 REFERENCE VALUE IS RELATED TO RISK LEVELS ASRECOMMENDED BY THE HEIDI. HEART, LUNG, AND BLOOD INST. HDL CHOLESTEROL (test code = HDL) 50 mg/dL 40-60 N LIPOPROTEIN LDL (test code = LDL) 119 mg/dL 100-129 N RN PERSONNEL, CONTACT PHYSICIAN IMMEDIATELY IF THIS IS A STROKE, AMI OR CAROTID STENOSIS PATIENT WHEN THE LDL >100 (1ST OCCURENCE, THIS ADMISSION) Reference Interval: mg/dL mmol/L Optimal <100 <2.6Near/above optimal 100-129 2.6- 3.3Borderline High 130-159 3.4-4.1High 160-189 4.1-4.9Very High >=190 >=4.9========= This LDL result is a direct measurement.========= [id number] 15:05:00* Test Item Value Reference Range Interpretation Comments LIPASE (test code = LIP) 41 U/L 73.0-393.0 L [id number] 15:05:00* Test Item Value Reference Range Interpretation Comments MAGNESIUM (test code = MAG) 2.2 mg/dL 1.8-2.4 N [id number] 14:54:00* Test Item Value Reference Range Interpretation Comments GLYCOSYLATED HEMOGLOBIN (HA1C) (test code = GLYHGB) 5.2 % HbA1 SUGGESTED DIAGNOSIS: HbA1C (%) Diabetic >6.4Prediabetes 5.7 - 6.4Normal <5.7 ESTIMATED AVERAGE GLUCOSE (test code = EAG) 103 MG/DL COMPREHENSIVE METABOLIC [id number] 14:52:00* Test Item Value Reference Range Interpretation Comments SODIUM (test code = NA) 141 mmol/L 136-145 N POTASSIUM (test code = K) 3.3 mmol/L 3.5-5.1 L CHLORIDE (test code = CL) 108.0 mmol/L 98-107 H CARBON DIOXIDE (test code = CO2) mmol/L 21-32 ANION GAP (test code = GAP) 10-20 GLUCOSE (test code = GLU) mg/dL 74-106 BLOOD UREA NITROGEN (test code = BUN) mg/dL 7-18 GLOMERULAR FILTRATION RATE (test code = GFR) mL/min >=60 CREATININE (test code = CREAT) mg/dL 0.55-1.02 BUN/CREATININE RATIO (test code = BUN/CREA) 10-20 TOTAL PROTEIN (test code = PROT) gram/dL 6.4-8.2 ALBUMIN (test code = ALB) g/dL 3.4-5.0 GLOBULIN (test code = GLOB) gram/dL 2.7-4.2 ALBUMIN/GLOBULIN RATIO (test code = A/G) 0.75-1.50 CALCIUM (test code = CA) mg/dL 8.5-10.1 BILIRUBIN TOTAL (test code = BILT) mg/dL 0.0-1.0 SGOT/AST (test code = AST) IUnit/L 15-37 SGPT/ALT (test code = ALT) IUnit/L 12-78 ALKALINE PHOSPHATASE TOTAL (test code = ALKP) IUnit/L 45-117 LIPID PROFILE (CORONARY RISK)2019-06-23 14:52:00* Test Item Value Reference Range Interpretation Comments TRIGLYCERIDES (test code = TRIG) mg/dL 20-150 CHOLESTEROL (test code = CHOL) mg/dL 0-200 CHOLESTEROL/HDL RATIO (test code = CHOLHDL) RATIO 0-4.9 HDL CHOLESTEROL (test code = HDL) mg/dL 40-60 LIPOPROTEIN LDL (test code = LDL) mg/dL 100-129 [id number] 14:52:00* Test Item Value Reference Range Interpretation Comments LIPASE (test code = LIP) U/L 73.0-393.0 [id number] 14:52:00* Test Item Value Reference Range Interpretation Comments MAGNESIUM (test code = MAG) mg/dL 1.8-2.4 CBC W/AUTO [id number] 14:35:00* Test Item Value Reference Range Interpretation Comments WHITE BLOOD CELL (test code = WBC) 12.2 K/mm3 4.5-12.5 N RED BLOOD CELL (test code = RBC) 4.35 mill/mm3 3.7-5.2 N HEMOGLOBIN (test code = HGB) 11.3 gram/dL 11.5-15.5 L HEMATOCRIT (test code = HCT) 34.8 % 36.0-46.0 L MEAN CELL VOLUME (test code = MCV) 80.0 fL 80-98 N MEAN CELL HGB (test code = MCH) 26.0 picogram 27.0-33.0 L MEAN CELL HGB CONCETRATION (test code = MCHC) 32.5 gram/dL 33.0-36. 0 L RED CELL DISTRIBUTION WIDTH (test code = RDW) 18.7 % 11.6-16. 2 H RED CELL DISTRIBUTION WIDTH SD (test code = RDW-SD) 54.0 fL 37 .0-51.0 H PLATELET COUNT (test code = PLT) 280 K/mm3 150-450 N MEAN PLATELET VOLUME (test code = MPV) 9.6 fL 6.7-11.0 N NEUTROPHIL % (test code = NT%) 75.7 % 39.0-69.0 H IMMATURE GRANULOCYTE % (test code = IG%) 0.5 % 0.0-5.0 N LYMPHOCYTE % (test code = LY%) 16.8 % 25.0-55.0 L MONOCYTE % (test code = MO%) 6.7 % 0.0-10.0 N EOSINOPHIL % (test code = EO%) 0.1 % 0.0-5.0 N BASOPHIL % (test code = BA%) 0.2 % 0.0-1.0 N NUCLEATED RBC % (test code = NRBC%) 0.0 % 0-0 N NEUTROPHIL # (test code = NT#) 9.23 K/mm3 1.8-7.7 H IMMATURE GRANULOCYTE # (test code = IG#) 0.06 x10 3/uL 0-0.03 H LYMPHOCYTE # (test code = LY#) 2.04 K/mm3 1.0-5.0 N MONOCYTE # (test code = MO#) 0.81 K/mm3 0-0.8 H EOSINOPHIL # (test code = EO#) 0.01 K/mm3 0.0-0.5 N BASOPHIL # (test code = BA#) 0.02 K/mm3 0.0-0.2 N NUCLEATED RBC # (test code = NRBC#) 0.00 K/mm3 0.0-0.1 N Sodium [id number] 07:04:00* Test Item Value Reference Range Interpretation Comments Sodium Level (test code = 2951-2) 138 136-145 [facility]assium [id number] 07:04:00* Test Item Value Reference Range Interpretation Comments Potassium Level (test code = 2823-3) 3.6 3.5-5.1 [facility] CenterChloride [id number] 07:04:00* Test Item Value Reference Range Interpretation Comments Chloride Level (test code = 2075-0) 102 98-107 [facility] CenterCarbon Dioxide [id number] 07:04:00* Test Item Value Reference Range Interpretation Comments Carbon Dioxide Level (test code = 2028-9) 28 22-29 [facility] CenterAnion [id number] 07:04:00* Test Item Value Reference Range Interpretation Comments Anion Gap (test code = 72419-6) 11.6 8-16 [facility] CenterBlood Urea [id number] 07:04:00* Test Item Value Reference Range Interpretation Comments Blood Urea Nitrogen (test code = 3094-0) < 5 7-26 L [facility] CenterCreatinine2019-08-31 07:04:00* Test Item Value Reference Range Interpretation Comments Creatinine (test code = 2160-0) 0.69 0.57-1.11 [facility] CenterBUN/Creatinine [id number] 07:04:00* Test Item Value Reference Range Interpretation Comments BUN/Creatinine Ratio (test code = 3097-3) 7 6-25 [facility] CenterEstimat Glomerular Filtration Rate 2019-01-28 07:04:00* Test Item Value Reference Range Interpretation Comments Estimat Glomerular Filtration Rate (test code = 336192725) > 60 >60 Ranges were taken from the National Kidney Disease Education Program and the [facility] [employer] literature.Reference ranges:60 or greater: [id number] ( for 3 consecutive months): Chronic kidney disease 15 or less: Kidney failureB[facility] Scott & [facility] Children's Medical CenterGlucose [id number] 07:04:00* Test Item Value Reference Range Interpretation Comments Glucose Level (test code = UJI0296) 143 74-118 H [facility] CenterCalcium [id number] 07:04:00* Test Item Value Reference Range Interpretation Comments Calcium Level (test code = 93284-9) 8.7 8.4-10.2 [facility] CenterTotal [id number] 07:04:00* Test Item Value Reference Range Interpretation Comments Total Bilirubin (test code = 1975-2) 0.5 0.2-1.2 [facility] CenterAspartate Amino Transf (AST/SGOT) 2019-01-28 07:04:00* Test Item Value Reference Range Interpretation Comments Aspartate Amino Transf (AST/SGOT) (test code = Aspartate Amino Transf (AST/SGOT)) 62 5-34 H [facility] CenterAlanine Aminotransferase (ALT/SGPT) 2019-01-28 07:04:00* Test Item Value Reference Range Interpretation Comments Alanine Aminotransferase (ALT/SGPT) (test code = 1742-6) 128 0-55 H [facility] CenterTotal [id number] 07:04:00* Test Item Value Reference Range Interpretation Comments Total Protein (test code = 2885-2) 5.3 6.5-8.1 L [facility] CenterAlbumin2019-08-31 07:04:00* Test Item Value Reference Range Interpretation Comments Albumin (test code = 1751-7) 3.0 3.5-5.0 L [facility] CenterGlobulin2019-08-31 07:04:00* Test Item Value Reference Range Interpretation Comments Globulin (test code = 76756-2) 2.3 2.3-3.5 [facility] CenterAlbumin/Globulin [id number] 07:04:00 * Test Item Value Reference Range Interpretation Comments Albumin/Globulin Ratio (test code = 1759-0) 1.3 0.8-2.0 [facility] CenterAlkaline [id number] 07:04:00* Test Item Value Reference Range Interpretation Comments Alkaline Phosphatase (test code = 6768-6) 36 40-150 L [facility] CenterWhite Blood [id number] 06:48:00* Test Item Value Reference Range Interpretation Comments White Blood Count (test code = 6690-2) 10.43 4.8-10.8 [facility] CenterRed Blood [id number] 06:48:00* Test Item Value Reference Range Interpretation Comments Red Blood Count (test code = 789-8) 3.82 3.6-5.1 [facility] CenterHemoglobin2019-08-31 06:48:00* Test Item Value Reference Range Interpretation Comments Hemoglobin (test code = 15386-6) 10.0 12.0-16.0 L [facility] CenterHematocrit2019-08-31 06:48:00* Test Item Value Reference Range Interpretation Comments Hematocrit (test code = 4544-3) 30.7 34.2-44.1 L [facility] CenterMean Corpuscular [id number] 06:48:00* Test Item Value Reference Range Interpretation Comments Mean Corpuscular Volume (test code = 787-2) 80.4 81-99 L [facility] CenterMean Corpuscular Yrlviuallw7734-91-98 06:48:00* Test Item Value Reference Range Interpretation Comments Mean Corpuscular Hemoglobin (test code = 785-6) 26.2 28-32 L [facility] CenterMean Corpuscular Hemoglobin Concent 2019-01-28 06:48:00* Test Item Value Reference Range Interpretation Comments Mean Corpuscular Hemoglobin Concent (test code = 786-4) 32.6 31-35 [facility] CenterRed Cell Distribution Edouj8100-29-98 06:48:00* Test Item Value Reference Range Interpretation Comments Red Cell Distribution Width (test code = 49968-3) 17.2 11.7 -14.4 H [facility] CenterPlatelet Ztpto5295-66-63 06:48:00* Test Item Value Reference Range Interpretation Comments Platelet Count (test code = 777-3) 204 140-360 [facility] CenterNeutrophils (%) (Auto)2019-01-28 06:48:00 * Test Item Value Reference Range Interpretation Comments Neutrophils (%) (Auto) (test code = 77107-9) 77.5 38.7-80.0 [facility] CenterLymphocytes (%) (Auto)2019-01-28 06:48:00 * Test Item Value Reference Range Interpretation Comments Lymphocytes (%) (Auto) (test code = 736-9) 13.2 18.0-39.1 L [facility] CenterMonocytes (%) (Auto)2019-01-28 06:48:00* Test Item Value Reference Range Interpretation Comments Monocytes (%) (Auto) (test code = 5905-5) 8.8 4.4-11.3 [facility] CenterEosinophils (%) (Auto)2019-01-28 06:48:00 * Test Item Value Reference Range Interpretation Comments Eosinophils (%) (Auto) (test code = 713-8) 0.0 0.0-6.0 [facility] CenterBasophils (%) (Auto)2019-01-28 06:48:00* Test Item Value Reference Range Interpretation Comments Basophils (%) (Auto) (test code = 706-2) 0.1 0.0-1.0 [facility] CenterIM GRANULOCYTES %2019-01-28 06:48:00* Test Item Value Reference Range Interpretation Comments IM GRANULOCYTES % (test code = IM GRANULOCYTES %) 0.4 0.0- 1.0 [facility] CenterNeutrophils # (Auto)2019-01-28 06:48:00* Test Item Value Reference Range Interpretation Comments Neutrophils # (Auto) (test code = 751-8) 8.1 2.1-6.9 H [facility] CenterLymphocytes # (Auto)2019-01-28 06:48:00* Test Item Value Reference Range Interpretation Comments Lymphocytes # (Auto) (test code = 04468-2) 1.4 1.0-3.2 [facility] CenterMonocytes # (Auto)2019-01-28 06:48:00* Test Item Value Reference Range Interpretation Comments Monocytes # (Auto) (test code = 742-7) 0.9 0.2-0.8 H [facility] CenterEosinophils # (Auto)2019-01-28 06:48:00* Test Item Value Reference Range Interpretation Comments Eosinophils # (Auto) (test code = 711-2) 0.0 0.0-0.4 [facility] CenterBasophils # (Auto)2019-01-28 06:48:00* Test Item Value Reference Range Interpretation Comments Basophils # (Auto) (test code = 704-7) 0.0 0.0-0.1 [facility] CenterAbsolute Immature Granulocyte (auto 2019-01-28 06:48:00* Test Item Value Reference Range Interpretation Comments Absolute Immature Granulocyte (auto (daysi t code = Absolute Immature Granulocyte (auto) 0.04 0-0.1 [facility] CenterHuman Chorionic Gonadotropin, Quant 2019-01-26 16:08:00* Test Item Value Reference Range Interpretation Comments Human Chorionic Gonadotropin, Quant (test code = 98872-0) < 1.20 0-10 [facility] A IgM Tfgevdok1193-73-40 15:31:00* Test Item Value Reference Range Interpretation Comments Hepatitis A IgM Antibody (test code = 21970-6) Negative Negativ e [facility] B Surface Kybqqsx6193-55-70 15:31:00* Test Item Value Reference Range Interpretation Comments Hepatitis B Surface Antigen (test code = 5196-1) Negative Negat deja [facility] B Core IgM Ywrxbdsy6018-68-47 15:31:00* Test Item Value Reference Range Interpretation Comments Hepatitis B Core IgM Antibody (test code = 22970-7) Negative Ne gative [facility] C Watfsjdh9245-14-26 15:31:00* Test Item Value Reference Range Interpretation Comments Hepatitis C Antibody (test code = 61758-0) <0.1 0.0-0.9 Negative: < 0.8 Indeterminate: 0.8 - 0.9 Positive: > 0.9 The CDC recommends that a positive HCV antibody result be followed up with a HCV Nucleic Acid Amplification test (309486).Performed at: [facility] Lab[address] [id number] Director: Andrea Palmer MD, Phone: [phone] Scott & White McLane Children's Medical CenterHEPTOBILIARY W [id number] 18:05:[address], [place], [place] [address] Patient Name: CRISTINE SPENCER MR #: [id number] : 1990 Age/Sex: 28/F Req #: [id number] Adm Physician: VELMA CONTRERAS MD Ordered by: MICHAEL ARTHUR MD Report #: [id number] Location: MED/SURG Room/Bed: [facility] Procedure: [id number] NM /HEPTOBILIARY W PHARM Exam Date: 01/25/19 Exam Time: 1350 REPORT STATUS: Signed Hepa tobiliary Scan with Gallbladder Ejection Fraction Clinical information: 28 F with pancreatitis and elevate LFT's. Technique: Following intravenous adm inistration of 6.6 millicuries of Tc-99m mebrofenin, dynamic images of the abd omen in the anterior projection were obtained through 60 minutes. A static quirino ge was obtained at 70 minutes. Sincalide (CCK analog) 1.0 micrograms was admin istered intravenously over 30 minutes with additional imaging for determinatio n of gallbladder ejection fraction. Discussion: Perfusion of the liver is normal. Extraction of tracer by the liver parenchyma is normal. Tracer appe ars within the biliary tract by 15 minutes. The gallbladder does not fill unt il 70 minutes but fills adequately. Tracer is seen in the small bowel by 45 m inutes. The gallbladder ejection fraction with sincalide is 16% (normal great er than 40%). Impression: 1. Filling of the gallbladder excludes acu te cystic duct obstruction/acute cholecystitis. 2. The decreased gallbladde r ejection fraction of 16% supports the clinical diagnosis of chronic cholecys titis/gallbladder dyskinesia. Signed by: Dr. Abhi Esparza M.D. on 01/25/2019 6:13 PM Dictated By: ABHI ESPARZA MD 12 Transcribed By: JAGUAR on 01/25/191812 COPY TO: MICHAEL ARTHUR MD US [id number] 09:11:00 [place] [address] Patient Name: CRISTINE SPENCER MR #: [id number] : 1990 Age/Sex: 28/F Req #: [id number] Adm Physician: VELMA CONTRERAS MD Ordered by: MICHAEL ARTHUR MD Report #: [id number] Location: MED/SURG Room/Bed: [facility] Procedure: [id number] US /US GALLBLADDER Exam Date: 01/25/19 Exam Time: 832 REPORT STATUS: Signed EXAMINATIO N: Right upper quadrant ultrasound CLINICAL INDICATION: Elevated liver func tion test COMPARISON: None DISCUSSION: Transverse and longitu dinal images of the right upper quadrant were obtained. The liver is normal in size measuring 12.6centimeters in length in the right midclavicular line a nd shows normal echogenicity. No focal masses are seen in the liver. There is no intrahepatic biliary dilatation. The common bile duct is normal in zachery iber and measures 0.3 cm. The main portal vein is normal in caliber and measur es 0.9 cm with normal hepatopetal flow. The gallbladder is normal in appea flor without stones, wall thickening or pericholecystic fluid. The sonographi c Blue's sign is negative. The visualized portions of the pancreatic mauricio dy are unremarkable. The right kidney measures 12 centimeters in length. T here is normal renal cortical echogenicity and no hydronephrosis, mass or shad owing calculi. The visualized portions of the great vessels are normal. No free fluid is seen. IMPRESSION: Normal gallbladder ultrasou nd Signed by: Dr. Unique Bullard M.D. on 01/25/2019 9:12 AM Dictated By: UNIQUE BULLARD MD 1 COPY TO: LUDWIG ARTHUR MD Amylase Ofpzl6200-90-11 06:28:00* Test Item Value Reference Range Interpretation Comments Amylase Level (test code = 1798-8) 79 25-125 [facility] CenterLipase2019-08-28 06:28:00* Test Item Value Reference Range Interpretation Comments Lipase (test code = 3040-3) 7 8-78 L [facility] CenterXR Chest 2 Lefqm1847-16-33 04:48:07 Patient: CRISTINE SPENCER am Date/Time11/23/2017 04:21 CDTReason for ExamCoughReportCHEST RADIOGRAPHSLOCATI ON: R16.INDICATION: Cough.COMPARISON: None.TECHNIQUE: PA and lateral radiographs of the chest.FINDINGS:The lungs are clear. There is no pneumothorax or pleural effusion. The cardiomediastinal silhouette is normal.IMPRESSION:No acute cardiop ulmonary disease. Final Dictated by: MD Armando Christopher ADic tated DT/TM: 11/23/2017 4:46 amSigned by: MD Armando Christopher ASigned (El ectronic Signature): 11/23/2017 4:48 am
--- OUTSIDE RECORDS SUMMARY | 2019-10-29 14:26 | XMS REPORT | Clinical Summary ---
Author Author [facility] Address Unknown Phone Unavailable Care Team Providers Care Account Installer Name Role Phone Asked, No Pcp PCP [...] Comments CERVICAL CANCER SCREENING 2011 INFLUENZA VACCINE 12/30/2019 Results Not on fileafter 10/28/2018 Advance Directives For more information, please contact: [phone] Date Inactivated Comments Code Status Date Activated 12/21/2015 4:34 PM Full Code 12/19/2015 10:16 AM Code Status decision reached by: Patient
--- OUTSIDE RECORDS SUMMARY | 2019-10-29 14:26 | XMS REPORT | Clinical Summary ---
Author Author [facility] Organization [facility] Address Unknown Phone Unavailable Care Team Providers Care Occupational Health Manager Name Role Phone PCP Unavailable Allergies No Known Allergies Medications End Date Status Medication Sig Dispensed Refills Start Date Active ondansetron (ZOFRAN) 4 mg Take 1 tablet 90 tablet 2 tabletIndications: N&V by mouth 3 (nausea and vomiting) every 6 hours. Active pyridoxine 25 mg Take 1 tablet 90 tablet 2 tabletIndications: N&V by mouth 3 (nausea and vomiting) daily. Active Doxylamine Succinate, Take 12.5 mg 60 tablet 2 Sleep, 25 mg by mouth 3 TabIndications: N&V every 6 (nausea and vomiting) hours. Half a tablet Active omeprazole (PRILOSEC) 20 Take 1 30 capsule 0 0 mg delayed release capsule by 4 capsuleIndications: mouth daily. Abdominal pain Active metoclopramide (REGLAN) Take 1 tablet 30 tablet 0 10 mg tabletIndications: by mouth 4 4 Epigastric abdominal times daily pain, Nausea and vomiting as needed for Nausea. Active famotidine (PEPCID) 20 mg Take 1 tablet 60 tablet 0 tabletIndications: by mouth 2 4 Epigastric abdominal times daily. pain, Nausea and vomiting Active sucralfate (CARAFATE) 1 Take 1 tablet 60 tablet 1 gram tabletIndications: by mouth 2 5 GERD (gastroesophageal times daily. reflux disease) Active Problems Problem Noted Date Cocaine abuse 08/21/2012 Cannabis-related disorder 08/21/2012 Dehydration 08/20/2012 Intractable nausea and vomiting 08/20/2012 UTI (urinary tract infection) 08/20/2012 Social History Date Tobacco Use Types Packs/Day Years Used Never Smoker Drinks/Week oz/Week Comments Alcohol Use No Sex Assigned at Date Recorded Not on file Industry Job Start Date Occupation Not on file Not on file Not on file Travel End Travel History Travel Start No recent travel history available. Last Filed Vital Signs Not on file Plan of Treatment Health Maintenance Due Date Last Done Comments Cervical Cancer Scrn (3 2011 Yrs) Results Not on fileafter 10/28/2018 Insurance Type Payer Benefit Subscriber ID Effective Phone Address Plan / Dates Group [facility] SELF-PAY SELF-PAY xxxxxxxxx 2015-P [phone] [address] [place] [address] [id number] Advance Directives Date Inactivated Comments Code Status Date Activated 11/28/2012 2:13 PM Full Code 11/22/2012 10:38 AM 08/22/2012 7:00 PM Full Code 08/20/2012 10:57 PM
[2019-10-29] MEDS ORDERED: SODIUM CHLORIDE 0.9% 1000ML 1,000 ML IV STA (14:39)
[2019-10-29] MEDS ORDERED: LIDOCAINE VISC 2% SOLN 15 ML UDC PO ONE (14:45)
[2019-10-29] MEDS ORDERED: MAGNESIUM/ALUMINUM/SIMETHICONE 30 ML UDC PO ONE (14:45)
[2019-10-29] MEDS ORDERED: METOCLOPRAMIDE HCL 10 MG/2ML VIAL IV ONE (15:00)
[2019-10-29] MEDS ORDERED: PANTOPRAZOLE 40 MG 10ML VIAL IV NR (15:00)
[2019-10-29] MEDS: BELLADONNA ALK/PHENOBARBITAL 5 ML UDC PO SCH (15:09)
[2019-10-29 15:18] LABS: BASOPHILS % 0.1 % (0.0-1.0); EOSINOPHILS % 0.1 % (0.0-6.0); HEMATOCRIT 37.5 % (34.2-44.1); HEMOGLOBIN 12.2 g/dL (12.0-16.0); LYMPHOCYTES # (AUTO) 1.9 (1.0-3.2); LYMPHOCYTES % 12.3 % (18.0-39.1); MEAN CORPUSCULAR HEMOGLOBIN 26.3 pg (28-32); MEAN CORPUSCULAR HGB CONC 32.5 g/dL (31-35); MONOCYTES # (AUTO) 1.1 (0.2-0.8); NEUTROPHILS # (AUTO) 12.2 (2.1-6.9); PLATELET COUNT 333 x10e3/uL (140-360); RED BLOOD COUNT 4.63 x10e6/uL (3.6-5.1); RED CELL DISTRIBUTION WIDTH 18.1 % (11.7-14.4)
[2019-10-29 15:23] LABS: CLARITY,URINE SL CLOUDY (CLEAR); COLOR,URINE YELLOW (YELLOW); LEUKOCYTE ESTERASE ,URINE NEGATIVE (NEGATIVE); NITRITE,URINE NEGATIVE (NEGATIVE)
[2019-10-29 15:24] LABS: BILIRUBIN,URINE SMALL (NEGATIVE); KETONES,URINE >=160 (NEGATIVE); PROTEIN,URINE DIPSTICK 2+ (NEGATIVE); URINE UROBILINOGEN 1 mg/dL (0.2 - 1)
[2019-10-29 15:25] LABS: PREGNANCY TEST, URINE NEGATIVE (NEGATIVE)
[2019-10-29] MEDS ORDERED: LORAZEPAM INJ 2 MG/ML VIAL IV NR (15:30)
[2019-10-29 15:37] LABS: ALANINE AMINOTRANSFERASE 46 IU/L (0-55); ALBUMIN 4.6 g/dL (3.5-5.0); ALBUMIN/GLOBULIN RATIO 1.3 (0.8-2.0); ALKALINE PHOSPHATASE 70 IU/L (40-150); ANION GAP 18.5 mmol/L (8-16); BACTERIA,URINE RARE /HPF; BLOOD UREA NITROGEN 14 mg/dL (7-26); BUN/CREATININE RATIO 18 (6-25); CALCIUM 10.1 mg/dL (8.4-10.2); CARBON DIOXIDE 23 mmol/L (22-29); CHLORIDE 104 mmol/L (98-107); CREATININE, SERUM 0.79 mg/dL (0.57-1.11); EPITHELIAL CELLS,URINE FEW /LPF; EST GLOMERULAR FILTRATION RATE > 60 ML/MIN (60-); GLUCOSE 90 mg/dL (74-118); LIPASE 7 U/L (8-78); POTASSIUM 3.5 mmol/L (3.5-5.1); SODIUM 142 mmol/L (136-145)
--- NOTE | 2019-10-29 16:42 | Emergency Department Note ---
History of Present Illnes History of Present Illness Chief Complaint: Abdominal Complaints History of Present Illness This is a 29 year old female .c/o abd pain n/v/d for several days HERE FOR ABDOMINAL PAIN AND NAUSEA WITH VOMITING AND WATERY DIARRHEA Historian: Patient Arrival Mode: Car Onset (how long ago): day(s) (several days) Location: generalized abd pain intermittent Quality: mild Radiation: non-radiation, back, neck, extremity, abdomen, periumbilical, flank, proximal, distal, other Severity: mild Duration (how long): day(s) (several days) Timing of current episode: constant, intermittent Progression: unchanged Context: recent illness, recent surgery, recent immobilization, recent travel, trauma/injury, new medications, hx of DVT/PE, non-compliance w/ medications, other Relieving factors: none Exacerbating factors: none Treatments prior to arrival: none (ORQUIDEA PARKER NP) Past Medical/Family History Physician Review I have reviewed the patient's past medical and family history. Any updates have been documented here. (ORQUIDEA PARKER NP) Past Medical History Recent Fever: No Clinical Suspicion of Infectio: No New/Unexplained Change in Ment: No Past Medical History: GERD Other Medical History: GASTRIC ULCERS SLIDING HIATAL HERNIA DIVERTICULITIS Past Surgical History: Other Surgery: EGD (ORQUIDEA PARKER NP) Social History Smoking Cessation: Former smoker Counseling Performed: No Alcohol Use: None Any Illegal Drug Use: No TB Exposure/Symptoms: No Physically hurt or threatened: No (ORQUIDEA PARKER NP) Other Last Tetanus: Unknown Any Pre-Existing Lines (PICC,: No Is patient up to date on immun: Yes Last Flu: ood Last Pneumovax: ood (ORQUIDEA PARKER NP) Review of Systems Review of Systems Constitutional: no symptoms EENTM: no symptoms Cardiovascular: no symptoms Respiratory: no symptoms Gastrointestinal: abdominal pain, nausea, vomiting Genitourinary: no symptoms Musculoskeletal: no symptoms Neurological: no symptoms Psychological: no symptoms Endocrine: no symptoms Hematological/Lymphatic: no symptoms Review of other systems All other systems reviewed and negative. (ORQUIDEA PARKER NP) Physical Exam Related Data Allergies: Coded Allergies: No Known Allergies (Unverified , 12/18/14) Triage Vital Signs Vital Signs Date Time Temp Pulse Resp B/P (MAP) Pulse Ox O2 Delivery O2 Flow Rate FiO2 10/29/19 14:40 98.2 88 18 113/84 99 Vital signs reviewed: Yes (ORQUIDEA PARKER CLIENT EXPERIENCE ADMINISTRATOR) Physical Exam CONSTITUTIONAL Constitutional: well-developed, well-nourished HENT HENT: normocephalic, atraumatic, oropharynx clear/moist, nose normal HENT L/R: left ext ear normal, right ext ear normal EYES Eyes: PERRL, conjunctivae normal NECK Neck: ROM normal PULMONARY Pulmonary: effort normal, breath sounds normal CARDIOVASCULAR Cardiovascular: regular rhythm, heart sounds normal, capillary refill normal, normal rate GASTROINTESTINAL Abdominal: soft; nontender (c/ generalized abd ttp mild ); bowel sounds normal, other (c/o n/v/d denies dysuria vag bleeding ) GENITOURINARY Genitourinary: vagina normal, other (r adnexal tenderness noted on exam minimal / no cmt / no d/c / pt currently on menstral period ) SKIN Skin: warm, dry MUSCULOSKELETAL Musculoskeletal: ROM normal NEUROLOGICAL Neurological: alert, oriented x 3, no gross motor or sensory deficits PSYCHOLOGICAL Psychological: mood/affect normal, judgement normal (ORQUIDEA PARKER CLIENT EXPERIENCE ADMINISTRATOR) Results Laboratory Result Diagram: 10/29/19 1443 10/29/19 1443 Laboratory Laboratory Tests Test 10/29/19 14:51 10/29/19 14:43 Urine Opiates Screen Negative (NEGATIVE) Urine Methadone Screen Negative (NEGATIVE) Urine Barbiturates Screen Negative (NEGATIVE) Urine Phencyclidine Screen Negative (NEGATIVE) Urine Amphetamines Screen Negative (NEGATIVE) Urine Methamphetamines Screen Negative (NEGATIVE) Urine Benzodiazepines Screen Negative (NEGATIVE) Urine Cocaine Screen Negative (NEGATIVE) Urine Cannabinoids Screen Negative (NEGATIVE) White Blood Count 15.26 x10e3/uL (4.8-10.8) Red Blood Count 4.63 x10e6/uL (3.6-5.1) Hemoglobin 12.2 g/dL (12.0-16.0) Hematocrit 37.5 % (34.2-44.1) Mean Corpuscular Volume 81.0 fL (81-99) Mean Corpuscular Hemoglobin 26.3 pg (28-32) Mean Corpuscular Hemoglobin Concent 32.5 g/dL (31-35) Red Cell Distribution Width 18.1 % (11.7-14.4) Platelet Count 333 x10e3/uL (140-360) Neutrophils (%) (Auto) 80.0 % (38.7-80.0) Lymphocytes (%) (Auto) 12.3 % (18.0-39.1) Monocytes (%) (Auto) 7.0 % (4.4-11.3) Eosinophils (%) (Auto) 0.1 % (0.0-6.0) Basophils (%) (Auto) 0.1 % (0.0-1.0) Neutrophils # (Auto) 12.2 (2.1-6.9) Lymphocytes # (Auto) 1.9 (1.0-3.2) Monocytes # (Auto) 1.1 (0.2-0.8) Eosinophils # (Auto) 0.0 (0.0-0.4) Basophils # (Auto) 0.0 (0.0-0.1) Absolute Immature Granulocyte (auto 0.08 x10e3/uL (0-0.1) Urine Color Yellow (YELLOW) Urine Clarity Sl cloudy (CLEAR) Urine pH 6.5 (5 - 7) Urine Specific [place] >=1.030 (1.010-1.025) Urine Protein 2+ (NEGATIVE) Urine Glucose (UA) Negative (NEGATIVE) Urine Ketones >=160 (NEGATIVE) Urine Blood Moderate (NEGATIVE) Urine Nitrite Negative (NEGATIVE) Urine Bilirubin Small (NEGATIVE) Urine Urobilinogen 1 mg/dL (0.2 - 1) Urine Leukocyte Esterase Negative (NEGATIVE) Urine RBC 6-10 /HPF (0-5) Urine WBC 11-20 /HPF (0-5) Urine Epithelial Cells Few /LPF (NONE) Urine Bacteria Rare /HPF (NONE) Urine Test Negative (NEGATIVE) Sodium Level 142 mmol/L (136-145) Potassium Level 3.5 mmol/L (3.5-5.1) Chloride Level 104 mmol/L (98-107) Carbon Dioxide Level 23 mmol/L (22-29) Anion Gap 18.5 mmol/L (8-16) Blood Urea Nitrogen 14 mg/dL (7-26) Creatinine 0.79 mg/dL (0.57-1.11) Estimat Glomerular Filtration Rate > 60 ML/MIN (60-) BUN/Creatinine Ratio 18 (6-25) Glucose Level 90 mg/dL (74-118) Calcium Level 10.1 mg/dL (8.4-10.2) Total Bilirubin 0.8 mg/dL (0.2-1.2) Aspartate Amino Transf (AST/SGOT) 62 IU/L (5-34) Alanine Aminotransferase (ALT/SGPT) 46 IU/L (0-55) Alkaline Phosphatase 70 IU/L (40-150) Total Protein 8.1 g/dL (6.5-8.1) Albumin 4.6 g/dL (3.5-5.0) Globulin 3.5 g/dL (2.3-3.5) Albumin/Globulin Ratio 1.3 (0.8-2.0) Lipase 7 U/L (8-78) Human Chorionic Gonadotropin, Qual Negative (NEGATIVE) Laboratory Tests Test 10/29/19 14:43 White Blood Count 15.26 x10e3/uL (4.8-10.8) Red Blood Count 4.63 x10e6/uL (3.6-5.1) Hemoglobin 12.2 g/dL (12.0-16.0) Hematocrit 37.5 % (34.2-44.1) Mean Corpuscular Volume 81.0 fL (81-99) Mean Corpuscular Hemoglobin 26.3 pg (28-32) Mean Corpuscular Hemoglobin Concent 32.5 g/dL (31-35) Red Cell Distribution Width 18.1 % (11.7-14.4) Platelet Count 333 x10e3/uL (140-360) Neutrophils (%) (Auto) 80.0 % (38.7-80.0) Lymphocytes (%) (Auto) 12.3 % (18.0-39.1) Monocytes (%) (Auto) 7.0 % (4.4-11.3) Eosinophils (%) (Auto) 0.1 % (0.0-6.0) Basophils (%) (Auto) 0.1 % (0.0-1.0) Neutrophils # (Auto) 12.2 (2.1-6.9) Lymphocytes # (Auto) 1.9 (1.0-3.2) Monocytes # (Auto) 1.1 (0.2-0.8) Eosinophils # (Auto) 0.0 (0.0-0.4) Basophils # (Auto) 0.0 (0.0-0.1) Absolute Immature Granulocyte (auto 0.08 x10e3/uL (0-0.1) Urine Color Yellow (YELLOW) Urine Clarity Sl cloudy (CLEAR) Urine pH 6.5 (5 - 7) Urine Specific [place] >=1.030 (1.010-1.025) Urine Protein 2+ (NEGATIVE) Urine Glucose (UA) Negative (NEGATIVE) Urine Ketones >=160 (NEGATIVE) Urine Blood Moderate (NEGATIVE) Urine Nitrite Negative (NEGATIVE) Urine Bilirubin Small (NEGATIVE) Urine Urobilinogen 1 mg/dL (0.2 - 1) Urine Leukocyte Esterase Negative (NEGATIVE) Urine RBC 6-10 /HPF (0-5) Urine WBC 11-20 /HPF (0-5) Urine Epithelial Cells Few /LPF (NONE) Urine Bacteria Rare /HPF (NONE) Urine Test Negative (NEGATIVE) Sodium Level 142 mmol/L (136-145) Potassium Level 3.5 mmol/L (3.5-5.1) Chloride Level 104 mmol/L (98-107) Carbon Dioxide Level 23 mmol/L (22-29) Anion Gap 18.5 mmol/L (8-16) Blood Urea Nitrogen 14 mg/dL (7-26) Creatinine 0.79 mg/dL (0.57-1.11) Estimat Glomerular Filtration Rate > 60 ML/MIN (60-) BUN/Creatinine Ratio 18 (6-25) Glucose Level 90 mg/dL (74-118) Calcium Level 10.1 mg/dL (8.4-10.2) Total Bilirubin 0.8 mg/dL (0.2-1.2) Aspartate Amino Transf (AST/SGOT) 62 IU/L (5-34) Alanine Aminotransferase (ALT/SGPT) 46 IU/L (0-55) Alkaline Phosphatase 70 IU/L (40-150) Total Protein 8.1 g/dL (6.5-8.1) Albumin 4.6 g/dL (3.5-5.0) Globulin 3.5 g/dL (2.3-3.5) Albumin/Globulin Ratio 1.3 (0.8-2.0) Lipase 7 U/L (8-78) Human Chorionic Gonadotropin, Qual Negative (NEGATIVE) Laboratory Tests Test 10/29/19 14:43 White Blood Count 15.26 x10e3/uL (4.8-10.8) Red Blood Count 4.63 x10e6/uL (3.6-5.1) Hemoglobin 12.2 g/dL (12.0-16.0) Hematocrit 37.5 % (34.2-44.1) Mean Corpuscular Volume 81.0 fL (81-99) Mean Corpuscular Hemoglobin 26.3 pg (28-32) Mean Corpuscular Hemoglobin Concent 32.5 g/dL (31-35) Red Cell Distribution Width 18.1 % (11.7-14.4) Platelet Count 333 x10e3/uL (140-360) Neutrophils (%) (Auto) 80.0 % (38.7-80.0) Lymphocytes (%) (Auto) 12.3 % (18.0-39.1) Monocytes (%) (Auto) 7.0 % (4.4-11.3) Eosinophils (%) (Auto) 0.1 % (0.0-6.0) Basophils (%) (Auto) 0.1 % (0.0-1.0) Neutrophils # (Auto) 12.2 (2.1-6.9) Lymphocytes # (Auto) 1.9 (1.0-3.2) Monocytes # (Auto) 1.1 (0.2-0.8) Eosinophils # (Auto) 0.0 (0.0-0.4) Basophils # (Auto) 0.0 (0.0-0.1) Absolute Immature Granulocyte (auto 0.08 x10e3/uL (0-0.1) Urine Color Yellow (YELLOW) Urine Clarity Sl cloudy (CLEAR) Urine pH 6.5 (5 - 7) Urine Specific [place] >=1.030 (1.010-1.025) Urine Protein 2+ (NEGATIVE) Urine Glucose (UA) Negative (NEGATIVE) Urine Ketones >=160 (NEGATIVE) Urine Blood Moderate (NEGATIVE) Urine Nitrite Negative (NEGATIVE) Urine Bilirubin Small (NEGATIVE) Urine Urobilinogen 1 mg/dL (0.2 - 1) Urine Leukocyte Esterase Negative (NEGATIVE) Urine RBC 6-10 /HPF (0-5) Urine WBC 11-20 /HPF (0-5) Urine Epithelial Cells Few /LPF (NONE) Urine Bacteria Rare /HPF (NONE) Urine Test Negative (NEGATIVE) Sodium Level 142 mmol/L (136-145) Potassium Level 3.5 mmol/L (3.5-5.1) Chloride Level 104 mmol/L (98-107) Carbon Dioxide Level 23 mmol/L (22-29) Anion Gap 18.5 mmol/L (8-16) Blood Urea Nitrogen 14 mg/dL (7-26) Creatinine 0.79 mg/dL (0.57-1.11) Estimat Glomerular Filtration Rate > 60 ML/MIN (60-) BUN/Creatinine Ratio 18 (6-25) Glucose Level 90 mg/dL (74-118) Calcium Level 10.1 mg/dL (8.4-10.2) Total Bilirubin 0.8 mg/dL (0.2-1.2) Aspartate Amino Transf (AST/SGOT) 62 IU/L (5-34) Alanine Aminotransferase (ALT/SGPT) 46 IU/L (0-55) Alkaline Phosphatase 70 IU/L (40-150) Total Protein 8.1 g/dL (6.5-8.1) Albumin 4.6 g/dL (3.5-5.0) Globulin 3.5 g/dL (2.3-3.5) Albumin/Globulin Ratio 1.3 (0.8-2.0) Lipase 7 U/L (8-78) Human Chorionic Gonadotropin, Qual Negative (NEGATIVE) Lab results reviewed: Yes Laboratory comments CONCLUSION: Normal appendix. Possible findings of enteritis, which may be infectious or inflammatory. Interval enlargement of a left adnexal bilobed dermoid versus two adjacent dermoids, measuring up to 3.0 cm in aggregate, previously 2.[address] from 01/09/2015. Suggest follow-up nonemergent pelvic MRI for further evaluation. Signed by: Dr. Naye Bess MD on 10/29/2019 5:47 PM Dictated By: NAYE BESS MD 46 Transcribed By: JAGUAR on 10/29/191746 COPY TO: ORQUIDEA PARKER NP~ (ORQUIDEA PARKER NP) Laboratory comments [place] [address] Patient Name: CRISTINE SPENCER MR #: [id number] : 1990 Age/Sex: 29/F Req #: [id number] [facility] Physician: Ordered by: ORQUIDEA PARKER CLIENT EXPERIENCE ADMINISTRATOR Report #: [id number] Location: ER Room/Bed: Procedure: [id number] HOPD/US PELVIS-NON OB - HOPD Exam Date: Exam Time: REPORT STATUS: Signed EXAM: Transabdominal and Transvaginal Pelvic Ultrasound with duplex INDICATION: Rule out torsion, right lower quadrant pain COMPARISON: Same day pelvis CT , abdominal CT 01/09/2015 TECHNIQUE: Grayscale transverse and sagittal transabdominal and transvaginal images were obtained of the pelvis. Transvaginal imaging was medically necessary to better evaluate the endometrium and the adnexa. Grayscale, color, and spectral waveform analysis of the ovaries was performed. CLINICAL HISTORY: 29 year old ; last menstrual period: 10/29/2019. FINDINGS: Uterus Orientation: Normal Size: 9.3 x 4.8 x 5.8 cm, Normal Mass: None Cervix: Nabothian cysts Endometrium: Thickness: 1.1 cm, Normal. Appearance: Homogeneous echotexture without focal thickening. Right ovary: Size: 3.8 x 1.8 x 2.7 cm, normal size Mass/Cyst: None Left ovary: Size: 4.3 x 1.5 x 4 cm, slightly enlarged Mass/Cyst: A 2.9 by 2 x 2 centimeter circumscribed ovoid echogenic mass arising from the left ovary. Adnexa: Normal Cul-de-sac: No free fluid IMPRESSION: Low suspicion for ovarian torsion. A 2.9 cm left ovarian echogenic mass, mostly fat on same day pelvis CT, compatible with a mature teratoma, stable since 2014. Signed by: Luis Garnett DO on 10/29/2019 8:50 PM Dictated By: LUIS GARNETT DO 49 Transcribed By: JAGUAR on 10/29/192049 COPY TO: ORQUIDEA PARKER CLIENT EXPERIENCE ADMINISTRATOR~ (ORQUIDEA PERAZA DO) Critical Care Time Subsequent provider I assumed direction of critical care for this patient from another provider of my specialty. (ORQUIDEA PARKER CLIENT EXPERIENCE ADMINISTRATOR) Assessment & Plan Reassessment Reassessment 29y f presented to ed c/o generalized abd pain n/v/d for several days - discussed plan of care w/ Dr Hall - lab ct ordered pt medicated w/ ns reglan protonix pt anxious c/o n/v - pt medicated w/ ativan 1mg Dr Hall in eval pt status (ORQUIDEA PARKER CLIENT EXPERIENCE ADMINISTRATOR) Reassessment US findings d/w with Dr Aguilar silverware etcher, low suspician for ovarian torsion. Agree with disposition to have patient f/u wt silverware etcher (ORQUIDEA PERAZA DO) Assessment & Plan Final Impression: (1) Abdominal pain Assessment & Plan Dr Hall in eval pt status discussed lab ct results plan of care and need for admit Dr Hall spoke w/ Dr Aguilar obgyn willl consult wants us and pelvic exam Dr Peraza in evapt status care of pt turned over to Dr Peraza US pending pt to be admitted (ORQUIDEA PARKER CLIENT EXPERIENCE ADMINISTRATOR) Final Impression: (1) Abdominal pain (2) UNSPECIFIED OVARIAN CYST, LEFT SIDE Assessment & Plan Discussed case with patient, US labs and CT report reviewed. patient resting comfortably. Patient to f/u with Paper Gluing Operator. Rx Tylenol #3, Phenergan, Azithromycin, Pepcid (ORQUIDEA PERAZA DO) Depart Disposition: HOME, SELF-CARE Last Vital Signs Date Time Temp Pulse Resp B/P (MAP) Pulse Ox O2 Delivery O2 Flow Rate FiO2 10/29/19 15:43 88 18 131/80 99 10/29/19 14:40 98.2 (ORQUIDEA PARKER CLIENT EXPERIENCE ADMINISTRATOR) Home Meds Reported Medications Acetaminophen With Codeine (TYLENOL WITH CODEINE #3 TABLET) 1 Each Tablet, 300 MG PO Q6H PRN for PAIN, TAB 01/28/19 [ Control] No Conflict Check, 1 EA PO DAILY 01/25/19 Medications in the ED Sodium Chloride 1,000 ml @ 0 mls/hr Q0M STAT IV Last administered on 10/29/19at 15:45; Admin Dose 999 MLS/HR; Start 10/29/19 at 14:39; Stop 10/29/19 at 14:40 Pantoprazole Sodium 40 mg ONCE IV Last administered on 10/29/19at 15:09; Admin Dose 40 MG; Start 10/29/19 at 15:00; Stop 10/29/19 at 16:00 Belladonna Alkaloids/ Phenobarbital 10 ml ONCE PO Last administered on 10/29/19at 15:09; Admin Dose 10 ML; Start 10/29/19 at 14:45; Stop 11/28/19 at 14:44 Lidocaine HCl 15 ml ONCE ONCE PO ; Start 10/29/19 at 14:45; Stop 10/29/19 at 14:46 Magnesium Aluminum Silicate 30 ml ONCE ONCE PO ; Start 10/29/19 at 14:45; Stop 10/29/19 at 14:46 Metoclopramide HCl 10 mg ONCE ONCE IV Last administered on 10/29/19at 15:09; Admin Dose 10 MG; Start 10/29/19 at 15:00; Stop 10/29/19 at 15:01 Lorazepam 1 mg ONCE IV Last administered on 10/29/19at 15:45; Admin Dose 1 MG; Start 10/29/19 at 15:30; Stop 10/29/19 at 16:59 (ORQUIDEA PARKER CLIENT EXPERIENCE ADMINISTRATOR) Physician Attestation Provider Attestation The patient's history, exam findings, diagnostics, and a summary of any interventions or procedures was reviewed in detail with our SHIRIN. I personally interviewed and examined the patient, and I have reviewed and agree with the HPI andexam. My personal exam shows [ patient re-evaluated. Nonsurgical abdomen. Case d/w with Dr Aguilar. Plan to discharge to f/u with coding assistant and given Dr Kristin Hanson's contact information. Rx Pepcid, tylenol 3, pepcid, phenergan]. I confirm the diagnosis as documented by the SHIRIN. I have reviewed and agree with the care plan articulated in the disposition section. (ORQUIDEA PERAZA DO) ORQUIDEA PARKER CLIENT EXPERIENCE ADMINISTRATOR October 29, 2019 16:42 ORQUIDEA PERAZA DO October 29, 2019 21:19 LISA HALL Oct 30, 2019 09:02
[2019-10-29] MEDS ORDERED: SODIUM CHLORIDE 0.9% 50ML 50 ML ONE (16:55)
[2019-10-29] MEDS ORDERED: IOPAMIDOL 370 MG/ML 200 ML INFUS..BTL INJ ONE (16:56)
[2019-10-29 17:47] LABS: AMPHETAMINES SCREEN,URINE NEGATIVE (NEGATIVE); BENZODIAZEPINES SCREEN,URINE NEGATIVE (NEGATIVE); PHENCYCLIDINE SCREEN,URINE NEGATIVE (NEGATIVE)
--- NOTE | 2019-10-29 17:50 | Diagnostic Imaging Report ---
EXAM: CT Abdomen and Pelvis WITH contrast INDICATION: Right lower quadrant abdominal pain, query appendicitis. COMPARISON: CT abdomen/pelvis 01-09-2015. TECHNIQUE: Abdomen and pelvis were scanned utilizing a multidetector helical scanner from the lung base to the pubic symphysis after administration of IV contrast. Coronal and sagittal reformations were obtained. Routine protocol was performed. Scan was performed during portal venous phase. IV CONTRAST: 100 cc of Isovue-370. ORAL CONTRAST: Water COMPLICATIONS: None RADIATION DOSE: Total DLP: 153.9 mGy*cm Estimated effective dose: (DLP x 0.015 x size factor) mSv CTDIvol has been reviewed. It is below the limits set by the Radiation Protocol Committee (RPC). FINDINGS: LINES and TUBES: None. LOWER THORAX: Unremarkable HEPATOBILIARY: Unchanged subcentimeter hyperdense lesion in segment 5 on series 2, image 28, compared to CT on 01/09/2015, which may represent a flash filling hemangioma. There is mild extra- hepatic biliary dilation likely post cholecystectomy resevoir effect. GALLBLADDER: Status post cholecystectomy. SPLEEN: No splenomegaly. PANCREAS: No focal masses or ductal dilatation. ADRENALS: No adrenal nodules KIDNEYS/URETERS: Kidneys enhance symmetrically. No evidence of hydronephrosis, solid mass, or stone. GI TRACT: Small appendix. No evidence of bowel obstruction. Decompressed small bowel loops which appear mildly thick-walled with scattered mural enhancement. PELVIC ORGANS/BLADDER: Endometrial fluid in the uterus. Interval enlargement of a left adnexal bilobed macroscopic fat containing lesion (or alternatively this may represent two adjacent lesions), measuring up to 3.0 x 1.5 cm, previously 2.0 x 1.6 cm. LYMPH NODES: No lymphadenopathy. VESSELS: Unremarkable. PERITONEUM / RETROPERITONEUM: No free air or fluid. BONES AND SOFT TISSUES: Unremarkable. CONCLUSION: Normal appendix. Possible findings of enteritis, which may be infectious or inflammatory. Interval enlargement of a left adnexal bilobed dermoid versus two adjacent dermoids, measuring up to 3.0 cm in aggregate, previously 2.[address] from 01/09/2015. Suggest follow-up nonemergent pelvic MRI for further evaluation. Signed by: Dr. Allison Grant MD on 10/29/2019 5:47 PM
--- NOTE | 2019-10-29 18:24 | NUR ---
accompanied pelvic exam with Raj TREVAP
[2019-10-29] MEDS ORDERED: AZITHROMYCIN 250 MG TAB PO STA (18:29)
[2019-10-29] MEDS ORDERED: ONDANSETRON HCL INJ 2MG/ML 2ML 2 MG/ML VIAL IV NR (18:30)
[2019-10-29] MEDS ORDERED: CEFTRIAXONE SOD 1 GM/NS 50 ML 50 ML IV ONE (18:30)
[2019-10-29] MEDS ORDERED: MORPHINE SULFATE INJ 4 MG/ML INJ 1ML IV NR (18:30)
[2019-10-29] MEDS ORDERED: AZITHROMYCIN 500MG/NS 250 ML 250 ML IV ONE (18:45)
--- NOTE | 2019-10-29 20:53 | Diagnostic Imaging Report ---
EXAM: Transabdominal and Transvaginal Pelvic Ultrasound with duplex INDICATION: Rule out torsion, right lower quadrant pain COMPARISON: Same day pelvis CT , abdominal CT 01/09/2015 TECHNIQUE: Grayscale transverse and sagittal transabdominal and transvaginal images were obtained of the pelvis. Transvaginal imaging was medically necessary to better evaluate the endometrium and the adnexa. Grayscale, color, and spectral waveform analysis of the ovaries was performed. CLINICAL HISTORY: 29 year old ; last menstrual period: 10/29/2019. FINDINGS: Uterus Orientation: Normal Size: 9.3 x 4.8 x 5.8 cm, Normal Mass: None Cervix: Nabothian cysts Endometrium: Thickness: 1.1 cm, Normal. Appearance: Homogeneous echotexture without focal thickening. Right ovary: Size: 3.8 x 1.8 x 2.7 cm, normal size Mass/Cyst: None Left ovary: Size: 4.3 x 1.5 x 4 cm, slightly enlarged Mass/Cyst: A 2.9 by 2 x 2 centimeter circumscribed ovoid echogenic mass arising from the left ovary. Adnexa: Normal Cul-de-sac: No free fluid IMPRESSION: Low suspicion for ovarian torsion. A 2.9 cm left ovarian echogenic mass, mostly fat on same day pelvis CT, compatible with a mature teratoma, stable since 2014. Signed by: Luis Garnett DO on 10/29/2019 8:50 PM
[2019-10-29] MEDS ORDERED: FAMOTIDINE 20 MG/2 ML VIAL IV STA (21:29)
[2019-10-29] MEDS ORDERED: PROMETHAZINE HCL (IM) 25 MG/ML VIAL IM ONE (21:30)
[2019-10-29 22:39] VITALS: BP 110/89
== END 2019-10-29 22:43 | disposition home or self-care (01) ==
LOC: ER 14:24
DX: R10.84 Generalized abdominal pain (principal); R11.2 Nausea with vomiting, unspecified; R19.7 Diarrhea, unspecified; K21.9 Gastro-esophageal reflux disease without esophagitis; Z87.11 Personal history of peptic ulcer disease
CPT/HCPCS: 36415; 74177; 76856 ×2; 80053; 80307; 81001; 81025; 83690; 84702; 85025; 99284; C9113; J0456; J0696; J2060; J2270; J2405; J2550; J2765; J7030; Q9967; 87086

== ENCOUNTER → 2020-02-20 | Day surgery (SDC) | payer BC ==
[~2020-02-20] MED LIST changes: +FENTANYL CITRATE/PF 100MCG/2 ML INJ ONE; +LIDOCAINE HCL 2% LOCAL INJ 5 ML SDV VIAL INJ ONE; +METOCLOPRAMIDE HCL 10 MG/2ML VIAL ONE; +MIDAZOLAM HCL 2 MG/2 ML VIAL ONE; +PROMETHAZINE HC25 M1 PO; +PROPOFOL IV EMULSION 10 MG/ML 20 ML VIAL ONE; +PROTONIX20 MG PO
[2020-02-20 12:30] VITALS: BP 99/81
--- NOTE | 2020-02-20 14:29 | Operative Report ---
DATE OF PROCEDURE: 02/20/2020 SURGEON: Immanuel Hanson MD PROCEDURE: EGD with esophageal dilatation and biopsies. INDICATIONS FOR PROCEDURE: Dysphagia to solids, heartburn, early satiety, bloating. MEDICATIONS: The patient was done under MAC, please see anesthesiologist's note. PROCEDURE IN DETAIL: With the patient in the left lateral decubitus position, a flexible fiberoptic Olympus gastroscope was introduced into the esophagus under direct visualization without any difficulty. There was some concentric rings noted in the esophagus, which were suspicious for eosinophilic esophagitis and biopsies were obtained. The scope was then advanced with ease into the stomach. Mucosa overlying the antrum and the body revealed some patchy erythema and [id number] edema, and biopsies were obtained and sent to stain for H. pylori. Pylorus was of normal contour and shape, was intubated with ease and the scope was advanced all the way to the second portion of the duodenum. Biopsies were obtained from the proximal second portion and the duodenal bulb to rule out sprue. The scope was then withdrawn back into the stomach and retroflexed, and mucosa overlying the fundus and the cardia appeared to be within normal limits. The scope was then straightened out, it was subsequently withdrawn, and the patient tolerated the procedure well. IMPRESSION: 1. Rule out eosinophilic esophagitis. 2. Esophagus dilated to size 52-[place] Cline. 3. Gastritis, biopsied, biopsies sent to stain for Helicobacter pylori. 4. Rule out sprue. PLAN: Follow up histology. Increase Protonix to 40 mg one p.o. before meals b.i.d. Immanuel Hanson MD [facility] [place], [place]/[facility] /[id number] cc: Maco Ramirez MD
== END | disposition home or self-care (01) ==
LOC: ENDO 10:15
PROVIDERS: ATTEND Internal Medicine Gastroenterology
DX: K29.50 Unspecified chronic gastritis without bleeding (principal); K22.2 Esophageal obstruction; K21.0 Gastro-esophageal reflux disease with esophagitis; K59.00 Constipation, unspecified; R19.5 Other fecal abnormalities; Z01.812 Encounter for preprocedural laboratory examination; Z11.59 Encounter for screening for other viral diseases; Z80.0 Family history of malignant neoplasm of digestive organs
CPT/HCPCS: 43239; 43450; 81025; J2001; J2250; J2704; J2765; J3010; U0002

== ENCOUNTER → 2021-04-07 | Day surgery (SDC) | payer BC ==
[~2021-04-07] MED LIST changes: +ONDANSETRON HCL INJ 2MG/ML 2ML 2 MG/ML VIAL ONE; +POVIDONE IODINE 0.05% 0.05 % ML PO ONE; +SODIUM CHLORIDE 0.9% 50ML 50 ML ONE
[2021-04-07 15:00] VITALS: BP 124/90
== END | disposition home or self-care (01) ==
LOC: ENDO 10:30
PROVIDERS: ATTEND Internal Medicine Gastroenterology
DX: K20.90 Esophagitis, unspecified without bleeding (principal); K29.50 Unspecified chronic gastritis without bleeding; B96.81 Helicobacter pylori [H. pylori] as the cause of diseases classified elsewhere; K29.60 Other gastritis without bleeding; K59.09 Other constipation; K22.89 Other specified disease of esophagus; K44.9 Diaphragmatic hernia without obstruction or gangrene; F41.9 Anxiety disorder, unspecified; Z88.8 Allergy status to other drugs, medicaments and biological substances; Z01.812 Encounter for preprocedural laboratory examination; Z20.822 Contact with and (suspected) exposure to COVID-19; Z80.0 Family history of malignant neoplasm of digestive organs
CPT/HCPCS: 43239; 43450; 81025; C9113; J2001; J2250; J2405; J2704; J2765; J3010; U0002